=== PATIENT | male | born 1990 | race Caucasian/White ===

== ENCOUNTER 2017-11-05 14:07 | Emergency (ER) | payer OTHER, MEDICAID, SELFPAY | END 2017-11-05 15:59 | disposition home or self-care (01) | PROVIDERS: Emergency Provider Internal Medicine; Visit Provider Internal Medicine | DX: L24.5 Irritant contact dermatitis due to other chemical products (principal) | CPT/HCPCS: 99282 ==

== ENCOUNTER 2019-01-03 09:13 | Emergency (ER) | payer OTHER, MEDICAID, SELFPAY ==
[2019-01-03 09:15] VITALS: BP 132/73; PULSE 75; RESP 20; TEMP 36.8; O2SAT 98; BMI 46.8
--- NOTE | 2019-01-03 09:35 | ED.SKABFB ---
HPI - Skin/Abscess/Foreign Bdy General Chief complaint: Skin/Abscess/Foreign Body Stated complaint: Rash on both legs Time Seen by Provider: 01/03/19 09:20 Source: patient and family Mode of arrival: ambulatory Limitations: no limitations History of Present Illness HPI narrative: 28-year-old male, daily smoker with history of obesity and family history of diabetes presents with a chief complaint of bilateral lower extremity pruritic rash over the past week or so. He has tried multiple hojc-tfc-ojnnbtc medications and creams, but has not yet used any antihistamines. His symptoms have gotten no better but no worse. He denies any swelling of the tongue, lips or throat, trouble breathing or swallowing. He denies any obvious exposure to new trigger such as pets, lotions, soaps or fabric. He denies any significant history of the same. MD complaint: rash Onset (ago): day(s) Tetanus up to date: yes Location: LLE and RLE Severity: moderate Quality: pruritic Relieving factors: none Exacerbating factors: none Associated symptoms: denies other symptoms Treatments prior to arrival: OTC topical medication Related Data Home Medications Medication Instructions Recorded Confirmed aspirin 81 mg PO QDAY #0 02/18/17 calcium carbonate [Tums] 500 mg PO PRN PRN #0 02/18/17 ibuprofen 600 mg PO #0 02/18/17 Previous Rx's Medication Instructions Recorded triamcinolone acetonide 1 kevin TOPICAL BID #60 gm 11/05/17 prednisone 40 mg PO DAILY #5 tab 01/03/19 Allergies Allergy/AdvReac Type Severity Reaction Status Date / Time amoxicillin [AMOXICILLIN] Allergy Severe HIVES Unverified 10/26/17 12:56 Penicillins [PENICILLINS] Allergy Severe Unverified 10/26/17 12:56 Review of Systems Constitutional Denies chills, Denies fever(s), Denies lethargy and Denies weakness Eyes Denies change in vision, Denies eye discharge, Denies irritation and Denies loss of vision ENT Ears, Nose, Mouth, and Throat: Denies change in voice, Denies neck pain and Denies sore throat Cardiovascular Denies chest pain, Denies irregular heart rhythm, Denies lightheadedness, Denies palpitations, Denies dyspnea, Denies dyspnea on exertion and Denies orthopnea Respiratory Denies cough, Denies dyspnea, Denies dyspnea on exertion and Denies wheezing Gastrointestinal Gastrointestinal: Denies abdominal pain, Denies change in bowel habits, Denies diarrhea, Denies nausea and Denies vomiting Genitourinary Denies hematuria, Denies flank pain, Denies urinary incontinence and Denies urinary urgency Musculoskeletal Denies neck pain Integumentary/Breasts Reports pruritus, Denies erythema, Reports rash and Denies wounds Neurologic Denies confusion, Denies loss of vision and Denies weakness Psychiatric Denies anxiety, Denies confusion, Denies depression, Denies homicidal ideation and Denies suicidal ideation Endocrine Denies palpitations Hematologic/Lymphatic Denies easy bruising Allergic/Immunologic Denies wheezing [facility] Social History Smoking Status: Current every day smoker Social History Smoking Status: Current every day smoker Exam Narrative Exam Narrative: GEN: AOx3 and in mild distress EYES: Pupils are equal, round, and reactive to light and accommodation. Extraoccular muscles are intact bilaterally. There is no subconjunctival hemorrhage or exudate. ENT: No lip, tongue or throat swelling, airway patent, patient tolerating secretions. CHEST: Lungs are clear to auscultation bilaterally and free of wheezes, rales, or rhonchi. Heart rate is regular rhythm, there are no murmurs, clicks, rubs, or gallops. There is no chest wall tenderness. ABD: Abdomen is soft and nontender. There is no guarding or rebound. Bowel sounds are normal in all 4 quadrants. There is no mass or organomegaly. EXT: Full painless ROM of all extremities with no loss of sensation or strength. SKIN: Maculopapular rash in bilateral lower extremities, blanching and pruritic. Initial Vital Signs Initial Vital Signs: Vital Signs Temperature 98.2 F 01/03/19 09:15 Pulse Rate 75 01/03/19 09:15 Respiratory Rate 20 01/03/19 09:15 Blood Pressure 132/73 01/03/19 09:15 Pulse Oximetry 98 01/03/19 09:15 Course Vital Signs - 8 hr 01/03/19 09:15 Temperature 98.2 F Pulse Rate 75 Respiratory Rate 20 Blood Pressure 132/73 Pulse Oximetry 98 Discharge Plan Departure Patient Disposition: Home Clinical Impression: Allergic reaction Qualifiers: Encounter type: initial encounter Qualified Code(s): T78.40XA - Allergy, unspecified, initial encounter Interventions: ED Discharge Assessment Last Done: 01/03/19 09:56 Instructions: DI for General Allergic Reactions Activity Restrictions/Additional Instructions: *You have been diagnosed with [bilateral lower extremity allergic reaction] *What to do: *Take medications as directed: Your prescription for prednisone has been electronically transmitted to [facility] at your request. In addition please consider taking orid-ccu-biuvvht antihistamines including a nonsedating variety such as Katie or Zyrtec during the day and then Benadryl at night. Furthermore histamine type 2 blockers such as Pepcid or Zantac can also help tremendously with a redness and itching, these are also [id number]-vmcnepy *Follow up with your primary care provider in 2-3 days, call for an appointment. Let them know you were seen in the Emergency Department and that we ask that you be seen in follow up *Return to ER if you should have any new, worsening or concerning symptoms Prescriptions: New prednisone 20 mg tablet 40 mg PO DAILY Qty: 5 RF: 0 No Action aspirin 81 MG tablet,delayed release (DR/EC) 81 mg PO QDAY Qty: 0 RF: 0 calcium carbonate [Tums] 500 MG tablet,chewable 500 mg PO PRN PRNQty: 0 RF: 0 ibuprofen 600 MG tablet 600 mg PO Qty: 0 RF: 0 triamcinolone acetonide 0.1 % ointment 1 kevin Topical BID Qty: 60 RF: 0 [address]errals: [facility] [Outside]
--- NOTE | 2019-01-03 09:39 | ED_ITS ---
HPI - Skin/Abscess/Foreign Bdy General Chief complaint: Skin/Abscess/Foreign Body Stated complaint: Rash on both legs Time Seen by Provider: 01/03/19 09:20 Source: patient and family Mode of arrival: ambulatory Limitations: no limitations History of Present Illness HPI narrative: 28-year-old male, daily smoker with history of obesity and family history of diabetes presents with a chief complaint of bilateral lower extremity pruritic rash over the past week or so. He has tried multiple zhov-gap-jtchycl medications and creams, but has not yet used any antihistamines. His symptoms have gotten no better but no worse. He denies any swelling of the tongue, lips or throat, trouble breathing or swallowing. He denies any obvious exposure to new trigger such as pets, lotions, soaps or fabric. He denies any significant history of the same. MD complaint: rash Onset (ago): day(s) Tetanus up to date: yes Location: LLE and RLE Severity: moderate Quality: pruritic Relieving factors: none Exacerbating factors: none Associated symptoms: denies other symptoms Treatments prior to arrival: OTC topical medication Related Data Home Medications Medication Instructions Recorded Confirmed aspirin 81 mg PO QDAY #0 02/18/17 calcium carbonate [Tums] 500 mg PO PRN PRN #0 02/18/17 ibuprofen 600 mg PO #0 02/18/17 Previous Rx's Medication Instructions Recorded triamcinolone acetonide 1 kevin TOPICAL BID #60 gm 11/05/17 prednisone 40 mg PO DAILY #5 tab 01/03/19 Allergies Allergy/AdvReac Type Severity Reaction Status Date / Time amoxicillin [AMOXICILLIN] Allergy Severe HIVES Unverified 10/26/17 12:56 Penicillins [PENICILLINS] Allergy Severe Unverified 10/26/17 12:56 Review of Systems Constitutional Denies chills, Denies fever(s), Denies lethargy and Denies weakness Eyes Denies change in vision, Denies eye discharge, Denies irritation and Denies loss of vision ENT Ears, Nose, Mouth, and Throat: Denies change in voice, Denies neck pain and Denies sore throat Cardiovascular Denies chest pain, Denies irregular heart rhythm, Denies lightheadedness, Denies palpitations, Denies dyspnea, Denies dyspnea on exertion and Denies orthopnea Respiratory Denies cough, Denies dyspnea, Denies dyspnea on exertion and Denies wheezing Gastrointestinal Gastrointestinal: Denies abdominal pain, Denies change in bowel habits, Denies diarrhea, Denies nausea and Denies vomiting Genitourinary Denies hematuria, Denies flank pain, Denies urinary incontinence and Denies urinary urgency Musculoskeletal Denies neck pain Integumentary/Breasts Reports pruritus, Denies erythema, Reports rash and Denies wounds Neurologic Denies confusion, Denies loss of vision and Denies weakness Psychiatric Denies anxiety, Denies confusion, Denies depression, Denies homicidal ideation and Denies suicidal ideation Endocrine Denies palpitations Hematologic/Lymphatic Denies easy bruising Allergic/Immunologic Denies wheezing [facility] Social History Smoking Status: Current every day smoker Social History Smoking Status: Current every day smoker Exam Narrative Exam Narrative: GEN: AOx3 and in mild distress EYES: Pupils are equal, round, and reactive to light and accommodation. Extraoccular muscles are intact bilaterally. There is no subconjunctival hemorrhage or exudate. ENT: No lip, tongue or throat swelling, airway patent, patient tolerating secretions. CHEST: Lungs are clear to auscultation bilaterally and free of wheezes, rales, or rhonchi. Heart rate is regular rhythm, there are no murmurs, clicks, rubs, or gallops. There is no chest wall tenderness. ABD: Abdomen is soft and nontender. There is no guarding or rebound. Bowel sounds are normal in all 4 quadrants. There is no mass or organomegaly. EXT: Full painless ROM of all extremities with no loss of sensation or strength. SKIN: Maculopapular rash in bilateral lower extremities, blanching and pruritic. Initial Vital Signs Initial Vital Signs: Vital Signs Temperature 98.2 F 01/03/19 09:15 Pulse Rate 75 01/03/19 09:15 Respiratory Rate 20 01/03/19 09:15 Blood Pressure 132/73 01/03/19 09:15 Pulse Oximetry 98 01/03/19 09:15 Course Vital Signs - 8 hr 01/03/19 09:15 Temperature 98.2 F Pulse Rate 75 Respiratory Rate 20 Blood Pressure 132/73 Pulse Oximetry 98 Discharge Plan Departure Patient Disposition: Home Clinical Impression: Allergic reaction Qualifiers: Encounter type: initial encounter Qualified Code(s): T78.40XA - Allergy, unspecified, initial encounter Interventions: ED Discharge Assessment Last Done: 01/03/19 09:56 Instructions: DI for General Allergic Reactions Activity Restrictions/Additional Instructions: *You have been diagnosed with [bilateral lower extremity allergic reaction] *What to do: *Take medications as directed: Your prescription for prednisone has been electronically transmitted to [facility] at your request. In addition please consider taking wjbg-zae-ztkyjgz antihistamines including a nonsedating variety such as Katie or Zyrtec during the day and then Benadryl at night. Furthermore histamine type 2 blockers such as Pepcid or Zantac can also help tremendously with a redness and itching, these are also obzm-mmy-rweomqa *Follow up with your primary care provider in 2-3 days, call for an appointment. Let them know you were seen in the Emergency Department and that we ask that you be seen in follow up *Return to ER if you should have any new, worsening or concerning symptoms Prescriptions: New prednisone 20 mg tablet 40 mg PO DAILY Qty: 5 RF: 0 No Action aspirin 81 MG tablet,delayed release (DR/EC) 81 mg PO QDAY Qty: 0 RF: 0 calcium carbonate [Tums] 500 MG tablet,chewable 500 mg PO PRN PRNQty: 0 RF: 0 ibuprofen 600 MG tablet 600 mg PO Qty: 0 RF: 0 triamcinolone acetonide 0.1 % ointment 1 kevin Topical BID Qty: 60 RF: 0 Referrals: [facility] [Outside]
--- NOTE | 2019-01-03 09:53 | PC.NURSE ---
the uticaria is mostly all below the knees.
== END 2019-01-03 09:56 | disposition home or self-care (01) ==
PROVIDERS: Emergency Provider Emergency Medicine
DX: T78.40XA Allergy, unspecified, initial encounter (principal)
CPT/HCPCS: 99282; 99283

== ENCOUNTER 2019-07-13 09:40 | Emergency (ER) | payer SELFPAY ==
[2019-07-13 09:48] VITALS: BP 205/110; PULSE 76; RESP 20; TEMP 36.7; O2SAT 98; BMI 50.1
--- NOTE | 2019-07-13 09:53 | ED_ITS ---
HPI - Back Pain/Injury General Chief Complaint: Back Pain/Injury Stated Complaint: 'severe back pain' Time Seen by Provider: 07/13/19 09:43 Source: patient Mode of arrival: Ambulatory Limitations: no limitations History of Present Illness HPI Narrative: Patient is a 29-year-old male who presents with back pain ongoing for last week. 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 He was unable to walk length flat is the only position of comfort. He has no changes in bowel or bladder habits. He has intermittently been taking ibuprofen which has helped he took tramadol prior to arrival she says did not help MD Complaint: back pain Onset (ago): week(s) Duration: constant Related Data Home Medications Medication Instructions Recorded Confirmed aspirin 81 mg PO QDAY #0 02/18/17 calcium carbonate [Tums] 500 mg PO PRN PRN #0 02/18/17 ibuprofen 600 mg PO #0 02/18/17 Previous Rx's Medication Instructions Recorded triamcinolone acetonide 1 kevin TOPICAL BID #60 gm 11/05/17 cyclobenzaprine 5 mg PO TID PRN #10 tab 07/13/19 meloxicam [Mobic] 7.5 mg PO DAILY PRN #20 tab 07/13/19 Allergies Allergy/AdvReac Type Severity Reaction Status Date / Time amoxicillin [AMOXICILLIN] Allergy Severe HIVES Verified 07/13/19 09:56 Penicillins [PENICILLINS] Allergy Severe Rash Verified 07/13/19 09:56 Review of Systems Review of Systems Narrative: GENERAL: Denies chills,fever HEENT: Denies throat pain RESPIRATORY: Denies dyspnea, cough, wheezing CARDIOVASCULAR: Denies chest pain, palpitations GASTROINTESTINAL: Denies nausea, vomiting MUSCULOSKELETAL: See HPI SKIN: No rash, no laceration, no pruritus NEUROLOGIC: Denies weakness, dizziness, headache, numbness 8 point review of systems is negative except for those stated above and HPI Patient History Medical History Patient denies significant medical history (Acute) Social History (Reviewed 12/27/19 @ 10:08 by NICHOL Malik Smoking Status: Current every day smoker Smoking Status: Current every day smoker alcohol intake frequency: a few times a month Substance Use Type: marijuana Exam Initial Vital Signs Initial Vital Signs: Vital Signs Temperature 98.1 F 07/13/19 09:48 Pulse Rate 76 07/13/19 09:48 Respiratory Rate 20 07/13/19 09:48 Blood Pressure 205/110 H 07/13/19 09:48 Pulse Oximetry 98 07/13/19 09:48 GENERAL: Overweight male appears in pain lying flat HEENT: Head atraumatic,EOMI, pupils reactive CARDIOVASCULAR: Regular rate and rhythm without murmurs, rubs or gallops. RESPIRATORY: Breath sounds equal bilaterally, no wheezes rales or rhonchi. BACK: Pain is reproduced when he tries to lift his left leg able to lift left leg 20-30 degrees. Right leg able to lift more than 60? EXTREMITIES: Normal range of motion, no clubbing or edema. Neurovascularly intact NEUROLOGICAL: Alert and oriented x4 SKIN: Warm, dry, no laceration, no petechiae, no rashes or lesions. Course Orders Ordered: Discontinued Medications Cyclobenzaprine HCl (Flexeril) 10 mg PO NOW ONE Stop: 07/13/19 10:00 Last Admin: 07/13/19 10:07 Dose: 10 mg Documented by: ROXANNE Ketorolac Tromethamine (Toradol) 30 mg IM NOW ONE Stop: 07/13/19 10:00 Last Admin: 07/13/19 10:07 Dose: 30 mg Documented by: ROXANNE Vital Signs Vital signs: Vital Signs - 8 hr 07/13/19 09:48 07/13/19 10:32 Temperature 98.1 F Pulse Rate 76 74 Respiratory Rate 20 18 Blood Pressure 205/110 H Blood Pressure [Left Arm] 167/88 H Pulse Oximetry 98 96 MDM - Back Pain/Injury MDM Narrative Medical decision making narrative: The patient is feeling a little bit better but still having significant pain. He is prescribed meloxicam and Flexeril recommended hot shower heating pad stretching and massage. Discharge Plan Departure Patient Disposition: Home Clinical Impression: Back pain Qualifiers: Back pain location: low back pain Chronicity: acute Back pain laterality: left Sciatica presence: with sciatica Sciatica laterality: sciatica of left side Qualified Code(s): M54.42 - Lumbago with sciatica, left side Discharge Date/Time: 07/13/19 11:01 Instructions: DI for Back Pain With Sciatica Activity Restrictions/Additional Instructions: *You have been diagnosed with back pain with sciatica *What to do: Recommend heat and stretching, light activity such as walking however heavy lifting more than 10-15 lb is not recommended in till your back is completely resolved *Continue to take medications as directed--> SENT TO [facility] [place] Meloxicam 7.5 mg once a day do not combine with any other NSAIDs such as ibuprofen, Aleve, Advil, naproxen etc Flexeril 1 to 2 tablets every 8 hours if needed for muscle spasm this can cause drowsiness do not drive or operate heavy machinery *Follow up with your primary care provider in 2-3 days *Return to ER if you should have increasing leg weakness, loss of urine or stool increasing pain or any new, worsening or concerning symptoms Prescriptions: New meloxicam [Mobic] 7.5 mg tablet 7.5 mg PO DAILY PRN (Reason: pain (scale score 4-6)) Qty: 20 RF: 0 cyclobenzaprine 5 mg tablet 5 mg PO TID PRN (Reason: muscle spasm) Qty: 10 RF: 0 No Action aspirin 81 MG tablet,delayed release (DR/EC) 81 mg PO QDAY Qty: 0 RF: 0 calcium carbonate [Tums] 500 MG tablet,chewable 500 mg PO PRN PRNQty: 0 RF: 0 ibuprofen 600 MG tablet 600 mg PO Qty: 0 RF: 0 triamcinolone acetonide 0.1 % ointment 1 kevin Topical BID Qty: 60 RF: 0 Referrals: [facility] [Outside]
[2019-07-13] MEDS: KETOROLAC 60 MG/2 ML VIAL 30 MG IM (10:07)
[2019-07-13] MEDS: CYCLOBENZAPRINE 10 MG TABLET PO (10:07)
[2019-07-13 10:32] VITALS: BP 167/88; PULSE 74; RESP 18; O2SAT 96
== END 2019-07-13 11:01 | disposition home or self-care (01) ==
PROVIDERS: Emergency Provider Emergency Medicine
DX: M54.42 Lumbago with sciatica, left side (principal)
CPT/HCPCS: 96372; 99281; 99283; J1885

== ENCOUNTER 2019-09-06 12:25 | Emergency (ER) | payer OTHER, MEDICAID, SELFPAY ==
[2019-09-06 12:27] VITALS: BP 172/116; PULSE 99; TEMP 36.5; O2SAT 99; BMI 50.0
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
[2019-09-06 13:00] VITALS: BP 139/101; PULSE 93; RESP 16; O2SAT 99
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
[2019-09-06 13:11] VITALS: BP 139/101; PULSE 93; RESP 20; O2SAT 99
[2019-09-06] MEDS: HYDROCODONE/ACET 5/325 TABLET 2 TAB PO (15:07)
[2019-09-06 15:14] VITALS: BP 175/103; PULSE 82; RESP 19; O2SAT 98
[2019-09-06 15:17] VITALS: BP 170/93; PULSE 80; RESP 20; O2SAT 98
== END 2019-09-06 15:41 | disposition home or self-care (01) ==
PROVIDERS: Emergency Provider Emergency Medicine
DX: M23.92 Unspecified internal derangement of left knee (principal); S69.91XA Unspecified injury of right wrist, hand and finger(s), initial encounter; V89.2XXA Person injured in unspecified motor-vehicle accident, traffic, initial encounter
CPT/HCPCS: 73110; 73562; 99283; 99284

== ENCOUNTER 2021-04-07 16:41 | Emergency (ER) | payer OTHER, MEDICAID, SELFPAY ==
[2021-04-07] VITALS (12 sets, daily range): BP systolic 135–162; BP diastolic 73–96; PULSE 80–95; RESP 10–25; TEMP 36.6; O2SAT 96–98; BMI 48.7
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
--- NOTE | 2021-04-07 17:28 | PC.NURSE ---
Pt reports 3 episodes of shearing chest pain in last month, most recent last night. Currently chest feels funny like I ran around a lot. C/o nausea and dizziness during an episode.
[2021-04-07 17:34] LABS: Add Manual Diff / Slide Review NO; Basophils Absolute Auto 100 /uL (0-100); Basophils Percent Auto 1.4 % (0-2); Eosinophils Absolute Auto 100 /uL (0-450); Hematocrit 44.1 % (41-53); Hemoglobin 15.1 g/dL (13.5-17.5); Lymphocytes Absolute Auto 2500 /uL (1100-4500); Lymphocytes Percent Auto 24.4 % (25-40); Mean Corpuscular HGB Conc 34.2 % (30-36); Mean Corpuscular Hemoglobin 29.2 PG (26-34); Mean Corpuscular Volume 85.4 fL (80-100); Monocytes Absolute Auto 600 /uL (0-900); Monocytes Percent Auto 5.4 % (3-14); Neutrophils Absolute Auto 6900 /uL (1500-7000); Neutrophils Percent Auto 67.8 % (50-75); Platelet Count 243 X10^3/uL (150-400); Red Blood Cell Count 5.16 X10^6/uL (4.5-5.9); Red Cell Distribution Width 14.2 % (11.6-14.8); White Blood Cell Count 10.2 X10^3/uL (4.5-11.0)
[2021-04-07 17:41] LABS: Alanine Aminotransferase 108 IU/L (<50); Albumin 4.4 g/dL (3.5-5.0); Albumin Globulin Ratio 1.5 (1.0-2.8); Alkaline Phosphatase 77 U/L (38-126); Aspartate Aminotransferase 60 IU/L (17-59); BUN Creatinine Ratio 17.4 (6-22); Bilirubin Total 0.5 mg/dL (0.2-1.3); Blood Urea Nitrogen 12 mg/dL (9-20); Calcium 9.2 mg/dL (8.4-10.2); Carbon Dioxide 32 mmol/L (22-32); Chloride 102 mmol/L (98-107); Creatine Kinase 136 U/L (55-170); Estimated Glomerular Filt Rate > 60.0 mL/min (>60); Glucose 154 mg/dL (70-100); HEMOLYSIS < 15 (0-50); Lipase 54 U/L (23-300); Potassium 4.1 mmol/L (3.4-5.1); Sodium 141 mmol/L (137-145); Total Protein 7.4 g/dL (6.3-8.2)
[2021-04-07 17:56] LABS: CKMB % Relative Index 1.9 % (1.5-5.0); Creatine Kinase MB 2.62 ng/mL (<2.37)
--- NOTE | 2021-04-07 18:32 | DI.RAD.S_ITS ---
PROCEDURE: XR CHEST 1V INDICATIONS: Chest pain, fatigue TECHNIQUE: One view of the [facility] was acquired. [facility] 04/07/[facility], 17:40. FINDINGS: Surgical changes and devices: None. Lungs and pleura: Lungs are clear. No pleural effusions or pneumothorax. Mediastinum: Mediastinal contours appear normal. Heart size is normal. Bones and chest wall: No suspicious bony lesions. Overlying soft tissues appear unremarkable. IMPRESSION: No infiltrate. Dictated by: Kasi Blanc M.D. on 04/07/2021 at 18:44 Approved by: Kasi Blanc M.D. on 04/07/2021 at 18:45
--- NOTE | 2021-04-07 19:26 | ED.CHESTPAIN ---
HPI - Chest Pain <Rivka Torres PA-C - Last Filed: 04/07/21 20:30> General Chief Complaint: Chest Pain Stated Complaint: CHEST PAIN Time Seen by Provider: 04/07/21 17:29 Source: patient Mode of arrival: Ambulatory Limitations: no limitations History of Present Illness HPI narrative: 31-year-old male with past medical history presents to the ED with 2 days of chest pain. Patient endorses onset of symptoms yesterday, which he describes as palpitations and chest pain accompanied by diaphoresis, fatigue, lightheadedness, anxiety. Patient called EMS, and in the meanwhile attempted a Valsalva maneuver by bearing down, which broke his palpitations. Patient endorses a history of such palpitations for several years, for which she has not sought medical help. EMS did an EKG with no acute findings, so patient did not come to the ED yesterday. Patient experienced similar palpitations along with chest pain earlier today, which prompted him to come into the ED. patient denies fever, chills, shortness of breath, cough, nausea, vomiting, abdominal pain, syncope. Patient endorses a family history of cardiac problems, but no early cardiac deaths. Related Data Home Medications Medication Instructions Recorded Confirmed aspirin 81 mg tablet,delayed 81 mg PO QDAY #0 02/18/17 release calcium carbonate 200 mg calcium 500 mg PO PRN PRN #0 02/18/17 (500 mg) chewable tablet (Tums) ibuprofen 600 mg tablet 600 mg PO #0 02/18/17 Previous Rx's Medication Instructions Recorded triamcinolone acetonide 0.1 % 1 kevin TOPICAL BID #60 gm 11/05/17 topical ointment cyclobenzaprine 5 mg tablet 5 mg PO TID PRN #10 tab 07/13/19 meloxicam 7.5 mg tablet (Mobic) 7.5 mg PO DAILY PRN #20 tab 07/13/19 Allergies Allergy/AdvReac Type Severity Reaction Status Date / Time amoxicillin [AMOXICILLIN] Allergy Severe HIVES Verified 09/06/19 12:27 Penicillins [PENICILLINS] Allergy Severe Rash Verified 09/06/19 12:27 Review of Systems <Rivka Torres PA-C - Last Filed: 04/07/21 20:30> Constitutional Constitutional: Denies chills, Reports fatigue, Denies fever(s), Denies frequent falls, Denies lethargy and Denies weakness Eyes Eyes: Denies change in vision, Denies eye discharge, Denies irritation and Denies loss of vision ENT Ears, Nose, Mouth, and Throat: Denies change in voice, Denies dizziness, Denies neck pain, Denies sore throat and Denies throat swelling Cardiovascular Cardiovascular: Reports chest pain, Denies irregular heart rhythm, Reports lightheadedness, Reports palpitations, Denies dyspnea, Denies dyspnea on exertion and Denies orthopnea Respiratory Respiratory: Denies cough, Denies dyspnea, Denies dyspnea on exertion and Denies wheezing Gastrointestinal Gastrointestinal: Denies abdominal pain, Denies change in bowel habits, Denies diarrhea, Denies nausea and Denies vomiting Musculoskeletal Musculoskeletal: Denies neck pain and Denies numbness Integumentary/Breasts Skin/Breast: Denies pruritus, Denies erythema, Denies rash and Denies wounds Neurologic Neurologic: Denies behavioral changes, Denies confusion, Denies dizziness, Denies frequent falls, Denies loss of vision, Denies numbness and Denies weakness Psychiatric Psychiatric: Denies anxiety, Denies behavioral changes, Denies confusion, Denies depression, Denies homicidal ideation and Denies suicidal ideation Endocrine Endocrine: Reports fatigue, Denies flushing and Reports palpitations Hematologic/Lymphatic Hematologic/Lymphatic: Denies easy bruising Allergic/Immunologic Allergic/Immunologic: Denies urticaria, Denies throat swelling and Denies wheezing Patient History <Rivka Torres PA-C - Last Filed: 04/07/21 20:30> Medical History (Updated 04/07/21 @ 20:06 by Rivka Torres PA-C) Patient denies significant medical history Social History Smoking Status: Former smoker Smoking Status: Former smoker alcohol intake frequency: holidays/special occasions only Substance Use Type: does not use Exam <Rivka Torres PA-C - Last Filed: 04/07/21 20:30> Initial Vital Signs Initial Vital Signs: Vital Signs Temperature 97.8 F 04/07/21 16:50 Pulse Rate 94 H 04/07/21 16:50 Respiratory Rate 16 04/07/21 16:50 Blood Pressure 162/87 H 04/07/21 16:50 Pulse Oximetry 98 04/07/21 16:50 Const General: cooperative HENMT Head: normocephalic and atraumatic Ears: external ears normal and TM's normal bilaterally Nose: external nose normal and No nasal discharge Face and sinus: sinuses nontender, face symmetric, no sinus tenderness and No dry mucous membranes Mouth: oral mucosae normal and moist mucous membranes Teeth and gingiva: dentition normal Throat: tonsils normal and uvula midline Eyes General: appearance normal, both eyes and all related structures Eyelids: eyelids normal Conjunctivae: conjunctivae normal Sclera: sclerae normal Pupils: PERRL EOM: EOM intact bilaterally Neck Neck: normal visual inspection, trachea midline, No lymphadenopathy, No midline deformity and No JVD Lymphatic: No lymphedema Chest Chest: normal inspection of the chest Resp Effort & Inspection: normal respiratory effort, able to speak in complete sentences, no respiratory distress and no use of accessory muscles Auscultation: clear to auscultation bilaterally, no rales, no rhonchi and no wheezes Cardio Rate: regular rate Rhythm: regular rhythm Heart Sounds: no click, no gallops, no murmurs and no rubs Pulses: normal peripheral pulses GI Inspection: non-distended Palpation: soft, no hepatosplenomegaly, No guarding, No pulsatile mass and No tender Auscultation: normal bowel sounds Back/Spine/Pelvis Back: No CVA tenderness Cervical Spine: cervical ROM normal and No pain with cervical ROM Thoracic/Lumbar Spine: thoracic and lumbar spine normal to inspection Skin General: no rashes or lesions noted, No jaundice and No petechiae Neuro General: patient alert, patient oriented x3, gait normal and no focal motor deficits Speech: speech normal Extrem General: full ROM, no clubbing, cyanosis or edema, no pedal edema and no calf tenderness Psych Appearance: well kempt Mental Status: mental status grossly normal Attitude: cooperative Thought Content: normal and suicidality Judgment: judgment good <Neno Martinez DO - Last Filed: 04/08/21 07:13> Initial Vital Signs Initial Vital Signs: Vital Signs Temperature 97.8 F 04/07/21 16:50 Pulse Rate 94 H 04/07/21 16:50 Respiratory Rate 16 04/07/21 16:50 Blood Pressure 162/87 H 04/07/21 16:50 Pulse Oximetry 98 04/07/21 16:50 Scores <Rivka Torres PA-C - Last Filed: 04/07/21 20:30> HEART Score Heart Score history: Moderately Suspicious Heart Score EKG: Normal Heart Score Age: < 45 years old Heart Score risk factors: 1-2 risk factors Heart Score troponin: < or = to normal limit Heart Score Total: 2 <Neno Martinez DO - Last Filed: 04/08/21 07:13> HEART Score Heart Score Total: 2 Course <Rivka Torres PA-C - Last Filed: 04/07/21 20:30> Course Course Narrative: Trop 0.030. Will recheck trop, EKG. Repeat trop was dwntrending to 0.020. Repeat EKG without changes. Will discharge home with strict ED return precautions, close follow-up with Cardiology and PCP. Orders Ordered: ED Orders 04/07/21 16:50 Complete Blood Count AUTO DIFF Stat Comprehensive Metabolic Panel Stat Lipase Stat Troponin & CK Cardiac Panel Stat 04/07/21 17:09 XR chest 1V Stat 04/07/21 18:32 XR chest 1V Stat 04/07/21 19:12 Troponin I Stat Vital Signs Vital signs: Vital Signs - 8 hr 04/07/21 16:50 04/07/21 17:20 04/07/21 17:21 Temperature 97.8 F Pulse Rate 94 H 95 H 89 Respiratory Rate 16 11 L 10 L Blood Pressure 162/87 H 162/96 H Pulse Oximetry 98 98 98 04/07/21 17:30 04/07/21 18:00 04/07/21 18:30 Temperature Pulse Rate 91 H 90 89 Respiratory Rate 22 19 25 H Blood Pressure 153/90 H 139/74 135/88 Pulse Oximetry 97 98 97 04/07/21 19:00 04/07/21 19:30 04/07/21 20:00 Temperature Pulse Rate 91 H 93 H 82 Respiratory Rate 21 18 22 Blood Pressure Pulse Oximetry 98 98 98 04/07/21 20:20 Temperature Pulse Rate 86 Respiratory Rate 21 Blood Pressure 154/80 H Pulse Oximetry 97 <Neno Martinez DO - Last Filed: 04/08/21 07:13> Orders Ordered: ED Orders 04/07/21 16:50 Complete Blood Count AUTO DIFF Stat Comprehensive Metabolic Panel Stat Lipase Stat Troponin & CK Cardiac Panel Stat 04/07/21 17:09 XR chest 1V Stat 04/07/21 18:32 XR chest 1V Stat 04/07/21 19:12 Troponin I Stat Vital Signs Vital signs: Vital Signs - 8 hr 04/07/21 16:50 04/07/21 17:20 04/07/21 17:21 Temperature 97.8 F Pulse Rate 94 H 95 H 89 Respiratory Rate 16 11 L 10 L Blood Pressure 162/87 H 162/96 H Pulse Oximetry 98 98 98 04/07/21 17:30 04/07/21 18:00 04/07/21 18:30 Temperature Pulse Rate 91 H 90 89 Respiratory Rate 22 19 25 H Blood Pressure 153/90 H 139/74 135/88 Pulse Oximetry 97 98 97 04/07/21 19:00 04/07/21 19:30 04/07/21 20:00 Temperature Pulse Rate 91 H 93 H 82 Respiratory Rate 21 18 22 Blood Pressure Pulse Oximetry 98 98 98 04/07/21 20:20 Temperature Pulse Rate 86 Respiratory Rate 21 Blood Pressure 154/80 H Pulse Oximetry 97 MDM - Chest Pain <Rivka Torres PA-C - Last Filed: 04/07/21 20:30> Lab Data Lab results narrative: Trop 0.030 -> 0.020. Result diagrams: 04/07/21 16:50 04/07/21 16:50 Labs: Lab Results 04/07/21 04/07/21 04/07/21 Range/Units 16:50 16:50 19:30 WBC 10.2 (4.5-11.0) X10^3/uL RBC 5.16 (4.5-5.9) X10^6/uL Hgb 15.1 (13.5-17.5) g/dL Hct 44.1 (41-53) % MCV 85.4 (80-100) fL MCH 29.2 (26-34) PG MCHC 34.2 (30-36) % RDW 14.2 (11.6-14.8) % Plt Count 243 (150-400) X10^3/uL Neut % (Auto) 67.8 (50-75) % Lymph % (Auto) 24.4 L (25-40) % Williams % (Auto) 5.4 (3-14) % Eos % (Auto) 1.0 L (2-4) % Baso % (Auto) 1.4 (0-2) % Neut # (Auto) 6900 (2756-7362) /uL Lymph # (Auto) 2500 (3336-2726) /uL Williams # (Auto) 600 (0-900) /uL Eos # (Auto) 100 (0-450) /uL Baso # (Auto) 100 (0-100) /uL Sodium 141 (137-145) mmol/L Potassium 4.1 (3.4-5.1) mmol/L Chloride 102 (98-107) mmol/L Carbon Dioxide 32 (22-32) mmol/L BUN 12 (9-20) mg/dL Creatinine 0.69 (0.66-1.25) mg/dL Estimated GFR > 60.0 (>60) mL/min BUN/Creatinine Ratio 17.4 (6-22) Glucose 154 H (70-100) mg/dL Calcium 9.2 (8.4-10.2) mg/dL Total Bilirubin 0.5 (0.2-1.3) mg/dL AST 60 H (17-59) IU/L ALT 108 H (<50) IU/L Alkaline Phosphatase 77 (38-126) U/L Total Creatine Kinase 136 (55-170) U/L CK-MB (CK-2) 2.62 H (<2.37) ng/mL CK-MB (CK-2) Rel Index 1.9 (1.5-5.0) % Troponin I 0.030 0.020 (0.01-0.034) ng/mL Total Protein 7.4 (6.3-8.2) g/dL Albumin 4.4 (3.5-5.0) g/dL Globulin 3.0 (1.7-4.1) g/dL Albumin/Globulin Ratio 1.5 (1.0-2.8) Lipase 54 (23-300) U/L Imaging Data Chest x-ray: Radiologist's Impression: PROCEDURE:? XR CHEST 1V ? INDICATIONS:? Chest pain, fatigue ? TECHNIQUE:? One view of the chest was acquired.? ? COMPARISON:? [facility], CHEST 2 VIEW, 02/18/2017, 18:03.? [facility], , XR CHEST 1V, 04/07/2021, 17:40. ? FINDINGS:? ? Surgical changes and devices:? None.? ? Lungs and pleura:? Lungs are clear.? No pleural effusions or pneumothorax.? ? Mediastinum:? Mediastinal contours appear normal.? Heart size is normal.? ? Bones and chest wall:? No suspicious bony lesions.? Overlying soft tissues appear unremarkable.? ? IMPRESSION:? No infiltrate. ? ? Dictated by: Kasi Blanc M.D. on 04/07/2021 at 18:44 ? ? Approved by: Kasi Blanc M.D. on 04/07/2021 at 18:45 ? chest x-ray 2v: Radiologist's Impression: PROCEDURE:? XR CHEST 1V ? INDICATIONS:? Chest pain, fatigue ? TECHNIQUE:? One view of the chest was acquired.? ? COMPARISON:? [facility], [place], CHEST 2 VIEW, 02/18/2017, 18:03.? [facility], [place], XR CHEST 1V, 04/07/2021, 17:40. ? FINDINGS:? ? Surgical changes and devices:? None.? ? Lungs and pleura:? Lungs are clear.? No pleural effusions or pneumothorax.? ? Mediastinum:? Mediastinal contours appear normal.? Heart size is normal.? ? Bones and chest wall:? No suspicious bony lesions.? Overlying soft tissues appear unremarkable.? ? IMPRESSION:? No infiltrate. ? ? Dictated by: Kasi Blanc M.D. on 04/07/2021 at 18:44 ? ? Approved by: Kasi Blanc M.D. on 04/07/2021 at 18:45 ? ECG Data Interpretation: NSR, No ST-T changes, no axis deviation MDM Narrative Medical decision making narrative: 31-year-old male with past medical history presents to the ED with 2 days of chest pain. Patient endorses onset of symptoms yesterday, which he describes as palpitations and chest pain accompanied by diaphoresis, fatigue, lightheadedness, anxiety. Concern for ACS versus SVT versus other arrhythmia versus pneumonia. Will order EKG, chest x-ray, labs, troponin. Will reassess. <Neno Martinez, - Last Filed: 04/08/21 07:13> Lab Data Labs: Lab Results 04/07/21 04/07/21 04/07/21 Range/Units 16:50 16:50 19:30 WBC 10.2 (4.5-11.0) X10^3/uL RBC 5.16 (4.5-5.9) X10^6/uL Hgb 15.1 (13.5-17.5) g/dL Hct 44.1 (41-53) % MCV 85.4 (80-100) fL MCH 29.2 (26-34) PG MCHC 34.2 (30-36) % RDW 14.2 (11.6-14.8) % Plt Count 243 (150-400) X10^3/uL Neut % (Auto) 67.8 (50-75) % Lymph % (Auto) 24.4 L (25-40) % Williams % (Auto) 5.4 (3-14) % Eos % (Auto) 1.0 L (2-4) % Baso % (Auto) 1.4 (0-2) % Neut # (Auto) 6900 (8957-5227) /uL Lymph # (Auto) 2500 (7680-8306) /uL Williams # (Auto) 600 (0-900) /uL Eos # (Auto) 100 (0-450) /uL Baso # (Auto) 100 (0-100) /uL Sodium 141 (137-145) mmol/L Potassium 4.1 (3.4-5.1) mmol/L Chloride 102 (98-107) mmol/L Carbon Dioxide 32 (22-32) mmol/L BUN 12 (9-20) mg/dL Creatinine 0.69 (0.66-1.25) mg/dL Estimated GFR > 60.0 (>60) mL/min BUN/Creatinine Ratio 17.4 (6-22) Glucose 154 H (70-100) mg/dL Calcium 9.2 (8.4-10.2) mg/dL Total Bilirubin 0.5 (0.2-1.3) mg/dL AST 60 H (17-59) IU/L ALT 108 H (<50) IU/L Alkaline Phosphatase 77 (38-126) U/L Total Creatine Kinase 136 (55-170) U/L CK-MB (CK-2) 2.62 H (<2.37) ng/mL CK-MB (CK-2) Rel Index 1.9 (1.5-5.0) % Troponin I 0.030 0.020 (0.01-0.034) ng/mL Total Protein 7.4 (6.3-8.2) g/dL Albumin 4.4 (3.5-5.0) g/dL Globulin 3.0 (1.7-4.1) g/dL Albumin/Globulin Ratio 1.5 (1.0-2.8) Lipase 54 (23-300) U/L Discharge Plan Departure Patient Disposition: Home Clinical Impression: Chest pain Qualifiers: Chest pain type: unspecified Qualified Code(s): R07.9 - Chest pain, unspecified Instructions: DI for Chest Pain Activity Restrictions/Additional Instructions: You were evaluated in the ED for chest pain today. Your EKG, chest x-ray, labs were normal. Please follow-up with a manufacturing millwright as soon as possible to be further evaluated for your frequent palpitations and chest pain. Follow-up with your PCP for a physical exam. Return to the ED if you symptoms worsen, worsening chest pain, shortness of breath. Prescriptions: No Action aspirin 81 MG tablet,delayed release (DR/EC) 81 mg PO QDAY Qty: 0 RF: 0 calcium carbonate [Tums] 500 MG tablet,chewable 500 mg PO PRN PRNQty: 0 RF: 0 ibuprofen 600 MG tablet 600 mg PO Qty: 0 RF: 0 triamcinolone acetonide 0.1 % ointment 1 kevin Topical BID Qty: 60 RF: 0 meloxicam [Mobic] 7.5 mg tablet 7.5 mg PO DAILY PRN (Reason: pain (scale score 4-6)) Qty: 20 RF: 0 cyclobenzaprine 5 mg tablet 5 mg PO TID PRN (Reason: muscle spasm) Qty: 10 RF: 0 <Neno Martinez, DO - Last Filed: 04/08/21 07:13> [facility] Dr Martinez Co-Sign Statement: I was available for consultation during this patient's emergency department visit. This chart is signed by myself for administrative purposes only. I did not have direct contact with this patient during this visit. They were seen independently by the APC.
== END 2021-04-07 20:52 | disposition home or self-care (01) ==
PROVIDERS: Emergency Medicine; Emergency Provider Student in an Organized Health Care Education/Training Program
DX: R07.9 Chest pain, unspecified (principal); R00.2 Palpitations; R53.83 Other fatigue
CPT/HCPCS: 36415; 71045; 80053; 82550; 82553; 83690; 84484; 85025; 93005; 93010; 99284

== ENCOUNTER → 2021-04-16 10:07 | Outpatient (CLI) | payer OTHER, MEDICAID, SELFPAY ==
--- NOTE | 2021-04-16 10:08 | DI.ECHO.S_ITS ---
[facility] +---------+ : : [id number] : [place] : : : : [id number] : : : : Phone: [phone] Echocardiogram Report + + :Name: CHAPO ABDALLA Study Date: 04/16/2021 Height: 75 in : :[facility] ReadingLocation: Weight: 390 lb : : Gender: Male BSA: 2.9 m2 : :: 1990 Age: 31 yrs BP: 186/109 mmHg: :Reason For Study: Chest pain : :Ordering Physician: VARINDER, : :TEJA Performed By: Antony Dumont : :Referring: TEJA REEDER : + + Interpretation Summary The left ventricle is normal in size. There is mild concentric left ventricular hypertrophy. Left ventricular systolic function is normal. The ejection fraction is estimated to be 60-65%. There are no focal wall motion abnormalities. Diastolic parameters suggest probable normal left ventricular diastolic function and normal filling pressures. The right ventricle is normal in size and function. The right ventricular systolic pressure is estimated to be at least 27 mmHg based on an estimated right atrial pressure of 3 mm Hg. Both atria are normal in size. There is mild mitral regurgitation. There is no other significant valvular heart disease. The aortic root is not well visualized. Procedure: A two-dimensional transthoracic echocardiogram with color flow and Doppler was performed. The study quality was technically difficult. There is no prior echocardiogram noted for this patient. A contrast injection of Definity was performed to improve assessment of LV function. Left Ventricle: The left ventricle is normal in size. There is mild concentric left ventricular hypertrophy. Left ventricular systolic function is normal. The ejection fraction is estimated to be 60-65%. There are no focal wall motion abnormalities. Diastolic parameters suggest probable normal left ventricular diastolic function and normal filling pressures. Right Ventricle: The right ventricle is normal in size and function. Atria: Both atria are normal in size. There is no Doppler evidence for an interatrial shunt. Mitral Valve: The mitral valve is normal in structure and function. There is mild mitral regurgitation. Aortic Valve: The aortic valve is grossly normal. There is no aortic valve stenosis. No aortic regurgitation is present. Tricuspid Valve: The tricuspid valve is normal in structure and function. There is mild tricuspid regurgitation. The right ventricular systolic pressure is estimated to be at least 27 mmHg based on an estimated right atrial pressure of 3 mm Hg. Pulmonic Valve: The pulmonic valve is not well visualized. There is no pulmonic valvular regurgitation. There is no other significant valvular heart disease. Great Vessels: The aortic root is not well visualized. The dimensions of the ascending aorta are normal. The IVC is of normal diameter and collapses greater than 50% with a sniff. This suggests a low right atrial pressure of 3 mm Hg. Pericardium/ Pleura There is no pericardial effusion. There is no pleural effusion. MMode/2D Measurements & Calculations LVIDd: 6.0 cm LVOT diam: 2.3 cm LVIDs: 3.8 cm asc Aorta Diam: 3.2 cm FS: 36.7 % IVSd: 1.4 cm LVPWd: 1.2 cm LV becerra. diameter/BSA (cm/m^2): 2.1 LV sys. diameter/BSA (cm/m^2): 1.3 LA dimension: 4.2 cm RA long axis: 4.7 cm LA A2 area: 24.6 cm2 IVC diam: 2.0 cm LA A4 area: 27.9 cm2 LA length (vol): 6.4 cm LA vol: 91.5 ml LA vol index: 31.4 ml/m2 TAPSE_phl: 2.8 cm Doppler Measurements & Calculations Ao V2 max: 172.0 cm/sec LVOT Max Kashif: 146.0 cm/sec Ao V2 mean: 119.0 cm/sec LV V1 max P.5 mmHg Ao max P.0 mmHg LV V1 VTI: 29.3 cm Ao mean P.0 mmHg ARMANDO(I,D): 4.0 cm2 Ao V2 VTI: 30.1 cm ARMANDO(V,D): 3.5 cm2 sev ratio: 0.97 ARMANDO indexed to BSA (cm^2/m^2): 1.4 MV E max kashif: 92.2 cm/sec TR max kashif: 244.0 cm/sec MV A max kashif: 80.5 cm/sec TR max P.8 mmHg MV E/A: 1.1 PA V2 max: 94.7 cm/sec Med Peak E' Kashif: 7.8 cm/sec PA V2 mean: 67.2 cm/sec E/E' med: 11.8 PA mean P.0 mmHg Lat Peak E' Kashif: 10.7 cm/sec PA pr(Accel): 52.9 mmHg E/E' lat: 8.6 E/e' average: 10.2 MV dec time: 0.22 sec SV(LVOT): 121.7 ml AV VR_phl: 0.85 ARMANDO(VTI)/BSA_phl: 1.4 MV P1/2t-pr_phl: 63.0 msec Reading Physician:02:50 PM
== END ==
PROVIDERS: PCP Student in an Organized Health Care Education/Training Program; Referring Provider Student in an Organized Health Care Education/Training Program; Visit Provider Student in an Organized Health Care Education/Training Program
DX: I08.1 Rheumatic disorders of both mitral and tricuspid valves (principal); R07.9 Chest pain, unspecified; R00.2 Palpitations
CPT/HCPCS: C8929; Q9957

== ENCOUNTER 2021-05-12 12:19 | Emergency (ER) | payer OTHER, MEDICAID, SELFPAY ==
[2021-05-12 12:25] VITALS: PULSE 243; RESP 26; TEMP 36.6; O2SAT 99; BMI 48.7
--- NOTE | 2021-05-12 12:28 | DI.RAD.S_ITS ---
PROCEDURE: XR CHEST 1V INDICATIONS: HIGH HEARTRATE AND CHEST PAIN TECHNIQUE: One view of the chest was acquired. COMPARISON: [facility], , XR CHEST 1V, 04/07/2021, 18:28. FINDINGS: Surgical changes and devices: None. Lungs and pleura: Lungs are clear. No pleural effusions or pneumothorax. Mediastinum: Mediastinal contours appear normal. Heart size is normal. Bones and chest wall: No suspicious bony lesions. Overlying soft tissues appear unremarkable. IMPRESSION: No acute cardiopulmonary process demonstrated radiographically. Dictated by: Venkat Chua M.D. on 05/12/2021 at 13:40 Approved by: Venkat Chua M.D. on 05/12/2021 at 13:42
[2021-05-12] MEDS: ADENOSINE 6 MG/2 ML VIAL 12 MG IV (12:40)
--- NOTE | 2021-05-12 12:42 | ED_ITS ---
HPI - Chest Pain General Chief Complaint: Chest Pain Stated Complaint: something is going on with heart Time Seen by Provider: 05/12/21 12:42 History of Present Illness HPI narrative: Patient is a 31-year-old male who presents with chest palpitations heart rate of 220 in SVT. He states that this has happened to him 4 times in the past however he quickly goes out of it. In fact he has an appointment with a atm mechanic who is postop put a Zio patch on him. He is sweaty diaphoretic feels like his heart is pounding out of his chest. He says this started after he quit smoking pot, 65 days ago. Related Data Home Medications Medication Instructions Recorded Confirmed aspirin 81 mg tablet,delayed 81 mg PO QDAY #0 02/18/17 release Allergies Allergy/AdvReac Type Severity Reaction Status Date / Time amoxicillin [AMOXICILLIN] Allergy Severe HIVES Verified 04/15/21 09:28 Penicillins [PENICILLINS] Allergy Severe Rash Verified 04/15/21 09:28 Review of Systems Review of Systems Narrative: GENERAL: Denies chills, fatigue, malaise, fever, sweats, travel HEENT: Denies sinus pain, ear pain, sore throat, difficulty swallowing, neck pain RESPIRATORY: Denies dyspnea, cough, wheezing, hemoptysis, sputum. CARDIOVASCULAR: See HPI GASTROINTESTINAL: Denies nausea, vomiting, abdominal pain, diarrhea, constipation, melena. : Denies dysuria, frequency, incontinence, hematuria, urinary retention, flank pain. MUSCULOSKELETAL: Denies weakness, joint pain, or bony pain SKIN: No rash, no erythema, no pruritus NEUROLOGIC: Denies weakness, dizziness, headache, numbness, change in speech, confusion PSYCHIATRIC: No concerning psychosocial issues. 12 point review of systems is negative except for those stated above and HPI Patient History Medical History (Updated 05/12/21 @ 13:35 by Lindsay Lozoya DO) Colitis Laceration of left index finger Puncture wound Splenic infarct Social History Smoking Status: Former smoker (started 01/2003 stopped 07/2017 1pk a day) Smoking Status: Former smoker (started 01/2003 stopped 07/2017 1pk a day) alcohol intake frequency: holidays/special occasions only Substance Use Type: does not use Exam Initial Vital Signs Initial Vital Signs: Vital Signs Temperature 98 F 05/12/21 12:25 Pulse Rate 243 H 05/12/21 12:25 Respiratory Rate 26 H 05/12/21 12:25 Pulse Oximetry 99 05/12/21 12:25 GENERAL: Alert 31-year-old male diaphoretic HEENT: Head atraumatic,EOMI, pupils reactive, face symmetric, moist mucous membranes CARDIOVASCULAR: Tachycardic regular RESPIRATORY: Breath sounds equal bilaterally, no wheezes rales or rhonchi. ABDOMEN: Soft, nontender. Normoactive bowel sounds all 4 quadrants. No guarding or rebound. EXTREMITIES: Normal range of motion, no clubbing or edema. Neurovascularly intact NEUROLOGICAL: Alert and oriented x4.Normal gait and speech. SKIN: Warm, dry, no laceration, no petechiae, no rashes or lesions. Procedures Cardioversion Consent Signed: No Indication: SVT Stability: Unstable Number of attempts (shocks): 1 Cardiac rhythm post-cardioversion: 120 Procedural Sedation Consent signed: No Indication: cardioversion ASA Class: III Mallampati Airway Classification: Class III IV Propofol dose (mg): 170 Intraservice time/total sedation time (min): 12 ED Sedation Level: Moderate (Concious) Patient Tolerated Procedure: Well Complications: Respiratory Depression-Repositioning Required Interventions: Airway repositioned Course Orders Ordered: ED Orders 05/12/21 12:28 XR chest 1V Stat 05/12/21 12:35 Complete Blood Count AUTO DIFF Stat Comprehensive Metabolic Panel Stat Lipase Stat Troponin & CK Cardiac Panel Stat EKG-12 Lead Stat Discontinued Medications Adenosine (Adenosine 6 Mg/2 Ml Vial) 12 mg IV NOW ONE Stop: 05/12/21 13:40 Last Admin: 05/12/21 12:40 Dose: 12 mg Documented by: CIELO Propofol (Propofol 200 Mg/20 Ml Vial) 175 mg 1 mg/kg (175 mg) IV NOW ONE Stop: 05/12/21 13:39 Last Admin: 05/12/21 12:55 Dose: 175 mg Documented by: CIELO Vital Signs Vital signs: Vital Signs - 8 hr 05/12/21 12:55 05/12/21 13:00 05/12/21 13:10 Pulse Rate 215 H 109 H Respiratory Rate 20 16 18 Blood Pressure Pulse Oximetry 98 90 L 92 05/12/21 13:35 05/12/21 18:58 Pulse Rate 109 H 238 H Respiratory Rate 20 24 Blood Pressure 145/89 H Pulse Oximetry 98 MDM - Chest Pain Lab Data Result diagrams: 05/12/21 12:35 05/12/21 12:35 Labs: Lab Results 05/12/21 05/12/21 Range/Units 12:35 12:35 WBC 10.8 (4.5-11.0) X10^3/uL RBC 5.40 (4.5-5.9) X10^6/uL Hgb 15.5 (13.5-17.5) g/dL Hct 45.3 (41-53) % MCV 83.9 (80-100) fL MCH 28.7 (26-34) PG MCHC 34.3 (30-36) % RDW 14.0 (11.6-14.8) % Plt Count 373 (150-400) X10^3/uL Neut % (Auto) 62.6 (50-75) % Lymph % (Auto) 29.1 (25-40) % [place] % (Auto) 6.8 (3-14) % Eos % (Auto) 0.8 L (2-4) % Baso % (Auto) 0.7 (0-2) % Neut # (Auto) 6800 (9428-3622) /uL Lymph # (Auto) 3200 (9616-3615) /uL [place] # (Auto) 700 (0-900) /uL Eos # (Auto) 100 (0-450) /uL Baso # (Auto) 100 (0-100) /uL Sodium 141 (137-145) mmol/L Potassium 3.5 (3.4-5.1) mmol/L Chloride 103 (98-107) mmol/L Carbon Dioxide 28 (22-32) mmol/L BUN 11 (9-20) mg/dL Creatinine 0.90 (0.66-1.25) mg/dL Estimated GFR > 60.0 (>60) mL/min BUN/Creatinine Ratio 12.2 (6-22) Glucose 121 H (70-100) mg/dL Calcium 9.7 (8.4-10.2) mg/dL Total Bilirubin 0.5 (0.2-1.3) mg/dL AST 59 (17-59) IU/L ALT 80 H (<50) IU/L Alkaline Phosphatase 70 (38-126) U/L Total Creatine Kinase 168 (55-170) U/L CK-MB (CK-2) 3.72 H (<2.37) ng/mL CK-MB (CK-2) Rel Index 2.2 (1.5-5.0) % Troponin I < 0.012 (0.01-0.034) ng/mL Total Protein 7.7 (6.3-8.2) g/dL Albumin 4.7 (3.5-5.0) g/dL Globulin 3.0 (1.7-4.1) g/dL Albumin/Globulin Ratio 1.6 (1.0-2.8) Lipase 53 (23-300) U/L Imaging Data Chest x-ray: Radiologist's Impression: PROCEDURE:? XR CHEST 1V ? INDICATIONS:? HIGH HEARTRATE AND CHEST PAIN ? TECHNIQUE:? One view of the chest was acquired.? ? COMPARISON:? [facility], , XR CHEST 1V, 04/07/2021, 18:28. ? FINDINGS:? ? Surgical changes and devices:? None.? ? Lungs and pleura:? Lungs are clear.? No pleural effusions or pneumothorax.? ? Mediastinum:? Mediastinal contours appear normal.? Heart size is normal.? ? Bones and chest wall:? No suspicious bony lesions.? Overlying soft tissues appear unremarkable.? ? IMPRESSION:? No acute cardiopulmonary process demonstrated radiographically. ? ? Dictated by: Venkat Chua M.D. on 05/12/2021 at 13:40 ? ECG Data Interpretation: EKG 1. SVT rate 228 no P-waves EKG 2. Sinus rhythm rate [address] changes PACs noted MDM Narrative Medical decision making narrative: Patient is in SVT. He immediately was tried a Valsalva maneuver which did work and converted him to sinus rhythm for a brief moment and he quickly went back into SVT. Tried adenosine 6 mg and 12 mg he was not responsive to either. The patient was then sedated and successfully cardioverted. He remained in sinus tachycardic rhythm. 1330- Dr. Whiteside, Discussion with Cardiology patient follow-up as scheduled and actually follow-up with Dr. Sullivan for possible ablation. The patient overall is feeling significantly better after he was cardioverted. Critical Care Time Critical Care Time Critical Care Time: Yes Total Critical Care Time: 45 Attestation: The high probability of a clinically significant, sudden or life threatening deterioration of the [cardiovascular] system(s) required my full and direct attention, intervention and personal management. The aggregate critical care time was [45] minutes. This time is in addition to time spent performing reported procedures but includes the following: [x] Data Review and interpretation [x] Patient assessment and monitoring of vital signs [x] Documentation [x] Medication orders and management Discharge Plan Departure Patient Disposition: Home Clinical Impression: Paroxysmal SVT (supraventricular tachycardia) Instructions: DI for Paroxysmal Supraventricular Tachycardia Activity Restrictions/Additional Instructions: *You have been diagnosed with supraventricular tachycardia *What to do: At this time your cardioverted knee emergency department. This is likely the cause of her heart palpitations. Please continue to see Cardiology today as scheduled. He may need more studies or medications. *Continue to take medications as directed *Follow up with your primary care provider in 2-3 days Follow-up cardiology today He may need to see Dr. Sullivan *Return to ER if you should have increasing heart palpitations, shortness of breath, or any new, worsening or concerning symptoms Prescriptions: No Action aspirin 81 MG tablet,delayed release (DR/EC) 81 mg PO QDAY Qty: 0 RF: 0 Referrals: Dennis Zhang MD [Primary Care Provider] - Ezequiel Sullivan MD [Physician] -
[2021-05-12 12:55] VITALS: PULSE 215; RESP 20; O2SAT 98
[2021-05-12] MEDS: propofoL 200 MG/20 ML VIAL 175 MG IV (12:55)
[2021-05-12 12:57] LABS: Add Manual Diff / Slide Review NO; Basophils Absolute Auto 100 /uL (0-100); Basophils Percent Auto 0.7 % (0-2); Eosinophils Absolute Auto 100 /uL (0-450); Eosinophils Percent Auto 0.8 % (2-4); Hematocrit 45.3 % (41-53); Hemoglobin 15.5 g/dL (13.5-17.5); Lymphocytes Absolute Auto 3200 /uL (1100-4500); Lymphocytes Percent Auto 29.1 % (25-40); Mean Corpuscular HGB Conc 34.3 % (30-36); Mean Corpuscular Hemoglobin 28.7 PG (26-34); Mean Corpuscular Volume 83.9 fL (80-100); Monocytes Absolute Auto 700 /uL (0-900); Monocytes Percent Auto 6.8 % (3-14); Neutrophils Absolute Auto 6800 /uL (1500-7000); Neutrophils Percent Auto 62.6 % (50-75); Platelet Count 373 X10^3/uL (150-400); White Blood Cell Count 10.8 X10^3/uL (4.5-11.0)
[2021-05-12 13:00] VITALS: PULSE 109; RESP 16; O2SAT 90
[2021-05-12 13:10] VITALS: RESP 18; O2SAT 92
[2021-05-12 13:11] LABS: Alanine Aminotransferase 80 IU/L (<50); Albumin 4.7 g/dL (3.5-5.0); Albumin Globulin Ratio 1.6 (1.0-2.8); Alkaline Phosphatase 70 U/L (38-126); Aspartate Aminotransferase 59 IU/L (17-59); BUN Creatinine Ratio 12.2 (6-22); Bilirubin Total 0.5 mg/dL (0.2-1.3); Blood Urea Nitrogen 11 mg/dL (9-20); Calcium 9.7 mg/dL (8.4-10.2); Carbon Dioxide 28 mmol/L (22-32); Chloride 103 mmol/L (98-107); Creatine Kinase 168 U/L (55-170); Estimated Glomerular Filt Rate > 60.0 mL/min (>60); Glucose 121 mg/dL (70-100); HEMOLYSIS < 15 (0-50); Lipase 53 U/L (23-300); Potassium 3.5 mmol/L (3.4-5.1); Sodium 141 mmol/L (137-145); Total Protein 7.7 g/dL (6.3-8.2)
[2021-05-12 13:23] LABS: Troponin I < 0.012 ng/mL (0.01-0.034)
[2021-05-12 13:26] LABS: CKMB % Relative Index 2.2 % (1.5-5.0); Creatine Kinase MB 3.72 ng/mL (<2.37)
[2021-05-12 13:35] VITALS: BP 145/89; PULSE 109; RESP 20; O2SAT 98
[2021-05-12] MEDS: ADENOSINE 6 MG/2 ML VIAL IV (13:37)
--- NOTE | 2021-05-12 13:41 | PC.NURSE ---
Patient arrived in SVT; adensosine (6mg and 12mg) were attempted after vagal maneuvers without success; 170 propofol given prior to 1 cardioversion shock @ 120joules. Patient converted to NSR @ 109HR. Recovered well from procedural sedation.
[2021-05-12 18:58] VITALS: PULSE 238; RESP 24; O2SAT 98
== END 2021-05-12 13:50 | disposition home or self-care (01) ==
PROVIDERS: Emergency Provider Emergency Medicine; PCP Student in an Organized Health Care Education/Training Program
DX: I47.1 Supraventricular tachycardia (principal)
CPT/HCPCS: 36415; 71045; 80053; 82550; 82553; 83690; 84484; 85025; 92960; 93005; 96374; 96375; 99152; 99284; 99291; J0153; J2704

== ENCOUNTER 2021-08-23 19:11 | Emergency (ER) | payer OTHER, MEDICAID, SELFPAY ==
[2021-08-23] VITALS (9 sets, daily range): BP systolic 125–191; BP diastolic 60–93; PULSE 103–215; RESP 4–26; TEMP 36.4; O2SAT 95–99; BMI 43.1
[2021-08-23] MEDS: ADENOSINE 6 MG/2 ML VIAL IV ×2 (19:22→19:23)
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
[2021-08-23] MEDS: SODIUM CHLORIDE 0.9% 1,000 ML 1000 ML IV (19:28)
[2021-08-23 19:40] LABS: Hemoglobin 16.3 g/dL (13.5-17.5); Monocytes Absolute Auto 900 /uL (0-900); Red Cell Distribution Width 13.3 % (11.6-14.8)
[2021-08-23 19:44] LABS: Add Manual Diff / Slide Review NO; Basophils Absolute Auto 100 /uL (0-100); Basophils Percent Auto 1.2 % (0-2); Eosinophils Absolute Auto 100 /uL (0-450); Eosinophils Percent Auto 1.3 % (2-4); Hematocrit 46.4 % (41-53); Lymphocytes Absolute Auto 3800 /uL (1100-4500); Lymphocytes Percent Auto 34.2 % (25-40); Mean Corpuscular HGB Conc 35.1 % (30-36); Mean Corpuscular Hemoglobin 29.5 PG (26-34); Mean Corpuscular Volume 83.9 fL (80-100); Monocytes Percent Auto 8.3 % (3-14); Neutrophils Absolute Auto 6000 /uL (1500-7000); Platelet Count 290 X10^3/uL (150-400); Red Blood Cell Count 5.53 X10^6/uL (4.5-5.9)
[2021-08-23 19:53] LABS: Alanine Aminotransferase 74 IU/L (<50); Albumin 4.7 g/dL (3.5-5.0); Albumin Globulin Ratio 1.4 (1.0-2.8); Alkaline Phosphatase 97 U/L (38-126); Aspartate Aminotransferase 49 IU/L (17-59); BUN Creatinine Ratio 14.5 (6-22); Bilirubin Total 0.4 mg/dL (0.2-1.3); Blood Urea Nitrogen 11 mg/dL (9-20); Calcium 9.3 mg/dL (8.4-10.2); Carbon Dioxide 28 mmol/L (22-32); Chloride 105 mmol/L (98-107); Estimated Glomerular Filt Rate > 60.0 mL/min (>60); Ethanol (ETOH) 43 mg/dL; Globulin 3.3 g/dL (1.7-4.1); Glucose 169 mg/dL (70-100); HEMOLYSIS 26 (0-50); Potassium 3.7 mmol/L (3.4-5.1); Sodium 141 mmol/L (137-145)
[2021-08-23 20:04] LABS: NT-proBNP (BNP-Adult 18+) 52 pg/mL (<125); Troponin I < 0.012 ng/mL (0.01-0.034)
== END 2021-08-23 21:10 | disposition home or self-care (01) ==
PROVIDERS: Emergency Provider Emergency Medicine; PCP Student in an Organized Health Care Education/Training Program
DX: I47.1 Supraventricular tachycardia (principal)
CPT/HCPCS: 36415; 80053; 80320; 83735; 83880; 84484; 85025; 93005; 93010; 96360; 99284; J0153

== ENCOUNTER → 2021-09-09 09:06 | Outpatient (CLI) | payer OTHER, MEDICAID, SELFPAY ==
[2021-09-09 12:20] LABS: Alanine Aminotransferase 54 IU/L (<50); Albumin 4.3 g/dL (3.5-5.0); Albumin Globulin Ratio 1.4 (1.0-2.8); Alkaline Phosphatase 61 U/L (38-126); Aspartate Aminotransferase 37 IU/L (17-59); BUN Creatinine Ratio 14.1 (6-22); Bilirubin Total 0.5 mg/dL (0.2-1.3); Blood Urea Nitrogen 9 mg/dL (9-20); Carbon Dioxide 31 mmol/L (22-32); Chloride 103 mmol/L (98-107); Cholesterol 121 mg/dL (140-199); Estimated Glomerular Filt Rate > 60.0 mL/min (>60); Globulin 3.1 g/dL (1.7-4.1); Glucose 132 mg/dL (70-100); HDL Cholesterol 38 mg/dL (40-60); HEMOLYSIS < 15 (0-50); LDL Cholesterol Calculated 67 mg/dL (<100); Potassium 4.1 mmol/L (3.4-5.1); Sodium 139 mmol/L (137-145); Total Protein 7.4 g/dL (6.3-8.2); Triglycerides 80 mg/dL (35-150)
[2021-09-09 12:33] LABS: Free T4, Direct Thyroxine 1.04 ng/dL (0.78-2.19)
[2021-09-09 12:47] LABS: Thyroid Stimulating Hormone 1.67 uIU/mL (0.47-4.68)
== END ==
PROVIDERS: PCP Student in an Organized Health Care Education/Training Program; Referring Provider Internal Medicine Cardiovascular Disease; Visit Provider Internal Medicine Cardiovascular Disease
DX: I47.1 Supraventricular tachycardia (principal); R00.2 Palpitations; Z68.43 Body mass index [BMI] 50.0-59.9, adult; Z13.220 Encounter for screening for lipoid disorders; I11.0 Hypertensive heart disease with heart failure
CPT/HCPCS: 36415; 80053; 80061; 83735; 84439; 84443

== ENCOUNTER 2021-09-20 03:29 | Emergency (ER) | payer OTHER, MEDICAID, SELFPAY ==
[2021-09-20] VITALS (9 sets, daily range): BP systolic 119–153; BP diastolic 55–103; PULSE 93–173; RESP 11–25; TEMP 36.8; O2SAT 93–99; BMI 50.6
--- NOTE | 2021-09-20 03:32 | DI.RAD.S_ITS ---
PROCEDURE: XR CHEST 1V INDICATIONS: Chest pain TECHNIQUE: One view of the chest was acquired. COMPARISON: [facility], CR, XR CHEST 1V, 05/12/2021, 13:15. FINDINGS: Surgical changes and devices: None. Lungs and pleura: Mild chronic interstitial prominence No pleural effusions or pneumothorax. Mediastinum: Mediastinal contours appear normal. . Mild cardiomegaly. Bones and chest wall: No suspicious bony lesions. Overlying soft tissues appear unremarkable. IMPRESSION: Mild cardiomegaly. No evidence acute pulmonary process. Comment: Final report is concordant with preliminary interpretation provided by [facility]. Dictated by: Harley Mcclure M.D. on 09/20/2021 at 6:19 Approved by: Harley Mcclure M.D. on 09/20/2021 at 6:20
--- NOTE | 2021-09-20 03:36 | ED.GENADULT ---
HPI - General Adult General Chief complaint: Arrhythmia/Palpitations Stated complaint: CHEST PAIN Time Seen by Provider: 09/20/21 03:32 Source: patient Mode of arrival: Ambulatory Limitations: no limitations History of Present Illness HPI narrative: Patient is a 31-year-old male. Has a history of SVT. Is on metoprolol for this. Has had SVT in the past requiring adenosine. He has also had cardioversions in the past. Is being followed by Cardiology. Is scheduled to have an ablation done in the next couple weeks for this. States that within the last hour arrival here to the emergency department he was woken from sleep with a fast heart rate. He feels very uncomfortable with this. It feels like his prior episodes of SVT. Has tried Valsalva maneuvers in route to the emergency department to try to break the SVT but they have been unsuccessful. Related Data Home Medications Medication Instructions Recorded Confirmed hydrochlorothiazide 12.5 mg tablet 12.5 mg PO DAILY 06/30/21 08/31/21 Previous Rx's Medication Instructions Recorded buspirone 7.5 mg tablet 7.5 mg PO BID #60 tab 08/31/21 metoprolol succinate 50 mg 50 mg PO DAILY #30 tab 08/31/21 tablet,extended release 24 hr Allergies Allergy/AdvReac Type Severity Reaction Status Date / Time amoxicillin [AMOXICILLIN] Allergy Severe HIVES Verified 08/31/21 16:50 Penicillins [PENICILLINS] Allergy Severe Rash Verified 08/31/21 16:50 Review of Systems Review of Systems ROS Unobtainable: All systems reviewed & are unremarkable except as noted in HPI and below Patient History Medical History Colitis Dysmetabolic syndrome Essential hypertension GERD (gastroesophageal reflux disease) (02/10/11) Heroin use disorder, moderate, in sustained remission Laceration of left index finger Methamphetamine abuse in remission Morbid obesity Observed sleep apnea PSVT (paroxysmal supraventricular tachycardia) Puncture wound Splenic infarct Social History Smoking Status: Former smoker (started 01/2003 stopped 07/2017 1pk a day) Smoking Status: Former smoker (started 01/2003 stopped 07/2017 1pk a day) alcohol intake frequency: holidays/special occasions only Substance Use Type: does not use Exam Initial Vital Signs Initial Vital Signs: Vital Signs Temperature 98.3 F 09/20/21 03:35 Pulse Rate 173 H 09/20/21 03:35 Respiratory Rate 19 09/20/21 03:35 Blood Pressure 153/103 H 09/20/21 03:35 Pulse Oximetry 99 09/20/21 03:35 Const General: cooperative, well groomed and No ill appearing HENMT Head: normal to inspection and normocephalic Eyes General: appearance normal, both eyes and all related structures Resp Effort & Inspection: normal respiratory effort Auscultation: clear to auscultation bilaterally Cardio Rate: tachycardic Rhythm: regular rhythm GI Inspection: normal to inspection Palpation: soft and No tender Skin General: no rashes or lesions noted Neuro General: patient alert, patient awake, patient oriented x3 and moves all extremities Extrem General: normal to inspection and capillary refill normal Psych Appearance: grossly normal and well kempt Procedures Cardioversion Consent Signed: Yes Indication: SVT Stability: Stable Number of attempts (shocks): 1 Joules used: 120 Cardiac rhythm post-cardioversion: Sinus rhythm Procedural Sedation Consent signed: Yes Time out performed: Yes Indication: cardioversion Presedation Evaluation: SVT Preparation: solar lab technician applied, pulse oximeter, capnometry used, supplemental O2 applied, suction/airway equipment at bedside and IV secured IV Propofol dose (mg): 120 Intraservice time/total sedation time (min): 10 ED Sedation Level: Moderate (Concious) Patient Tolerated Procedure: Well and No complications Course Orders Ordered: ED Orders 09/20/21 EKG-12 Lead Routine 09/20/21 03:32 XR chest 1V Stat 09/20/21 03:37 EKG-12 Lead Stat 09/20/21 03:49 RT Consult Eval and Treat Now 09/20/21 03:50 Basic Metabolic Panel Stat Complete Blood Count AUTO DIFF Stat Magnesium Stat Discontinued Medications Adenosine (Adenosine 6 Mg/2 Ml Vial) 12 mg IV NOW ONE Stop: 09/20/21 03:37 Last Admin: 09/20/21 03:40 Dose: 12 mg Documented by: RAAD Sodium Chloride (Normal Saline 0.9%) 1,000 mls @ 1,000 mls/hr IV BOLUS ONE Stop: 09/20/21 04:35 Last Admin: 09/20/21 04:27 Dose: 1,000 mls/hr Documented by: RAAD Propofol (Propofol 200 Mg/20 Ml Vial) 100 mg IV NOW ONE Stop: 09/20/21 03:49 Last Admin: 09/20/21 04:28 Dose: Not Given Documented by: RAAD Propofol (Propofol 200 Mg/20 Ml Vial) 185 mg 1 mg/kg (185 mg) IV NOW ONE Stop: 09/20/21 04:27 Last Admin: 09/20/21 04:03 Dose: 120 mg Documented by: RAAD Vital Signs Vital signs: Vital Signs - 8 hr 09/20/21 03:35 09/20/21 03:50 09/20/21 04:00 Temperature 98.3 F Pulse Rate 173 H 173 H 161 H Respiratory Rate 19 20 16 Blood Pressure 153/103 H Pulse Oximetry 99 97 09/20/21 04:06 09/20/21 04:10 09/20/21 04:15 Temperature Pulse Rate 100 H 97 H 103 H Respiratory Rate 15 21 25 H Blood Pressure 130/58 L 119/55 L 123/59 L Pulse Oximetry 97 96 96 09/20/21 04:20 09/20/21 04:25 09/20/21 04:30 Temperature Pulse Rate 93 H 94 H 93 H Respiratory Rate 13 13 11 L Blood Pressure 140/70 139/68 137/64 Pulse Oximetry 93 94 94 Medical Decision Making Lab Data Lab results reviewed: Yes I reviewed the patient's lab results. Result diagrams: 09/20/21 03:50 09/20/21 03:50 Labs: Lab Results 09/20/21 09/20/21 Range/Units 03:50 03:50 WBC 9.3 (4.5-11.0) X10^3/uL RBC 5.25 (4.5-5.9) X10^6/uL Hgb 15.0 (13.5-17.5) g/dL Hct 44.7 (41-53) % MCV 85.1 (80-100) fL MCH 28.5 (26-34) PG MCHC 33.5 (30-36) % RDW 13.6 (11.6-14.8) % Plt Count 262 (150-400) X10^3/uL Neut % (Auto) 71.3 (50-75) % Lymph % (Auto) 19.6 L (25-40) % [place] % (Auto) 6.1 (3-14) % Eos % (Auto) 1.1 L (2-4) % Baso % (Auto) 1.9 (0-2) % Neut # (Auto) 6600 (5149-0753) /uL Lymph # (Auto) 1800 (6301-0115) /uL [place] # (Auto) 600 (0-900) /uL Eos # (Auto) 100 (0-450) /uL Baso # (Auto) 200 H (0-100) /uL Sodium 140 (137-145) mmol/L Potassium 4.2 (3.4-5.1) mmol/L Chloride 101 (98-107) mmol/L Carbon Dioxide 32 (22-32) mmol/L BUN 13 (9-20) mg/dL Creatinine 0.69 (0.66-1.25) mg/dL Estimated GFR > 60.0 (>60) mL/min BUN/Creatinine Ratio 18.8 (6-22) Glucose 149 H (70-100) mg/dL Calcium 9.0 (8.4-10.2) mg/dL Magnesium 2.1 (1.6-2.3) mg/dL Imaging Data Chest x-ray: Attestation: I personally reviewed and interpreted this imaging study as follows: My Impression: No acute pathology, enlarged heart ECG Data Attestation: I personally reviewed and interpreted this ECG as follows: Interpretation: Presentation EKG SVT Ventricular rate [address] T wave changes Post cardioversion EKG Sinus rhythm Ventricular rate 94 Normal axis Normal QRS Normal QTC No ST T wave changes MDM Narrative Medical decision making narrative: Patient does have a history of SVT. Is on metoprolol. Is scheduled to have an ablation performed. Arrived less than 1 hour after the onset of symptoms. Patient is tachycardic. Regular narrow complex with a heart rate in the 160s. It did reach to the 180s. Considered a-fib with 2-1 block however given his history I am more concerned about SVT. Was given 12 mg of adenosine without any resolution of symptoms. This was repeated with another 12 mg of adenosine and once again no resolution of symptoms. Patient was consented for cardioversion and sedation. Consent was signed. Expressed understanding the risks and benefits. Successful cardioversion to sinus rhythm with heart rate less than 100 after 1 attempt. Patient tolerated procedure well. Will have him continue all of his medications as directed. 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 He was given return precautions. He expressed understanding and agreement. Discharge Plan Departure Patient Disposition: Home Clinical Impression: SVT (supraventricular tachycardia) Instructions: DI for Paroxysmal Supraventricular Tachycardia Activity Restrictions/Additional Instructions: I recommend that you continue to take all of your medications as directed. Keep all of your scheduled medical appointments to include your garment presser. Return to the emergency department for any new or worsening symptoms. Prescriptions: No Action hydrochlorothiazide 12.5 mg tablet 12.5 mg PO DAILY 0RF buspirone 7.5 mg tablet 7.5 mg PO BID Qty: 60 0RF metoprolol succinate 50 mg tablet extended release 24 hr 50 mg PO DAILY Qty: 30 1RF Referrals: Dennis Zhang MD [Primary Care Provider] -
[2021-09-20] MEDS: ADENOSINE 6 MG/2 ML VIAL 12 MG IV ×2 (03:40→03:48)
[2021-09-20 04:03] LABS: Add Manual Diff / Slide Review NO; Basophils Absolute Auto 200 /uL (0-100); Basophils Percent Auto 1.9 % (0-2); Eosinophils Absolute Auto 100 /uL (0-450); Eosinophils Percent Auto 1.1 % (2-4); Hematocrit 44.7 % (41-53); Lymphocytes Absolute Auto 1800 /uL (1100-4500); Lymphocytes Percent Auto 19.6 % (25-40); Mean Corpuscular HGB Conc 33.5 % (30-36); Mean Corpuscular Hemoglobin 28.5 PG (26-34); Mean Corpuscular Volume 85.1 fL (80-100); Monocytes Absolute Auto 600 /uL (0-900); Monocytes Percent Auto 6.1 % (3-14); Neutrophils Absolute Auto 6600 /uL (1500-7000); Neutrophils Percent Auto 71.3 % (50-75); Platelet Count 262 X10^3/uL (150-400); Red Blood Cell Count 5.25 X10^6/uL (4.5-5.9); Red Cell Distribution Width 13.6 % (11.6-14.8); White Blood Cell Count 9.3 X10^3/uL (4.5-11.0)
[2021-09-20] MEDS: propofoL 200 MG/20 ML VIAL 185 MG IV (04:03)
[2021-09-20 04:08] LABS: BUN Creatinine Ratio 18.8 (6-22); Blood Urea Nitrogen 13 mg/dL (9-20); Carbon Dioxide 32 mmol/L (22-32); Chloride 101 mmol/L (98-107); Estimated Glomerular Filt Rate > 60.0 mL/min (>60); Glucose 149 mg/dL (70-100); HEMOLYSIS 16 (0-50); Magnesium 2.1 mg/dL (1.6-2.3); Potassium 4.2 mmol/L (3.4-5.1); Sodium 140 mmol/L (137-145)
[2021-09-20] MEDS: SODIUM CHLORIDE 0.9% 1,000 ML 1000 ML IV (04:27)
== END 2021-09-20 04:58 | disposition home or self-care (01) ==
PROVIDERS: Emergency Provider Emergency Medicine; PCP Student in an Organized Health Care Education/Training Program
DX: I47.1 Supraventricular tachycardia (principal); Z87.891 Personal history of nicotine dependence; Z79.899 Other long term (current) drug therapy
CPT/HCPCS: 36415; 71045; 80048; 83735; 85025; 92960; 93005; 99152; 99284; 99285; J0153; J2704

== ENCOUNTER 2021-11-18 11:07 | Emergency (ER) | payer OTHER, MEDICAID, SELFPAY ==
[2021-11-18] VITALS (8 sets, daily range): BP systolic 125–170; BP diastolic 60–95; PULSE 53–86; RESP 11–22; TEMP 35.5; O2SAT 94–99; BMI 50.0
--- NOTE | 2021-11-18 11:22 | DI.RAD.S_ITS ---
PROCEDURE: XR CHEST 1V INDICATIONS: chest pain TECHNIQUE: One view of the chest was acquired. COMPARISON: [facility], CR, XR CHEST 1V, 04/07/2021, 17:40. [facility], CR, XR CHEST 1V, 04/07/2021, 18:28. [facility], CR, XR CHEST 1V, 05/12/2021, 13:15. [facility], CR, XR CHEST 1V, 09/20/2021, 3:39. FINDINGS: Surgical changes and devices: None. Lungs and pleura: An incomplete inspiratory result is noted, causing a crowded appearance to the lung markings. No focal infiltrates are seen. No pneumothorax or significant pleural effusions are seen. Mediastinum: Mediastinal contours appear normal. Heart size is normal. Bones and chest wall: No suspicious bony lesions. Overlying soft tissues appear unremarkable. This study is limited by body habitus. IMPRESSION: Portable chest within normal limits. Dictated by: Juan Chan M.D. on 11/18/2021 at 11:12 Approved by: Juan Chan M.D. on 11/18/2021 at 11:15
[2021-11-18 12:14] LABS: Add Manual Diff / Slide Review NO; Basophils Absolute Auto 0 /uL (0-100); Basophils Percent Auto 0.8 % (0-2); Eosinophils Absolute Auto 0 /uL (0-450); Eosinophils Percent Auto 0.8 % (2-4); Hematocrit 38.4 % (41-53); Hemoglobin 13.4 g/dL (13.5-17.5); Lymphocytes Absolute Auto 1100 /uL (1100-4500); Lymphocytes Percent Auto 20.5 % (25-40); Mean Corpuscular HGB Conc 34.8 % (30-36); Mean Corpuscular Hemoglobin 28.7 PG (26-34); Mean Corpuscular Volume 82.4 fL (80-100); Monocytes Absolute Auto 300 /uL (0-900); Monocytes Percent Auto 5.9 % (3-14); Neutrophils Absolute Auto 4000 /uL (1500-7000); Platelet Count 211 X10^3/uL (150-400); Red Blood Cell Count 4.66 X10^6/uL (4.5-5.9); Red Cell Distribution Width 13.5 % (11.6-14.8); White Blood Cell Count 5.5 X10^3/uL (4.5-11.0)
[2021-11-18 12:15] LABS: INR 1.3 (0.9-1.3); Prothrombin Time 14.9 SECONDS (10.1-12.7)
[2021-11-18 12:18] LABS: Alanine Aminotransferase 51 IU/L (<50); Albumin 4.2 g/dL (3.5-5.0); Albumin Globulin Ratio 1.4 (1.0-2.8); Alkaline Phosphatase 57 U/L (38-126); Aspartate Aminotransferase 41 IU/L (17-59); BUN Creatinine Ratio 15.9 (6-22); Bilirubin Total 0.5 mg/dL (0.2-1.3); Blood Urea Nitrogen 11 mg/dL (9-20); Calcium 9.1 mg/dL (8.4-10.2); Carbon Dioxide 32 mmol/L (22-32); Chloride 103 mmol/L (98-107); Creatine Kinase 326 U/L (55-170); Estimated Glomerular Filt Rate > 60 mL/min (>60); Globulin 3.1 g/dL (1.7-4.1); Glucose 148 mg/dL (70-100); HEMOLYSIS < 15 (0-50); Lipase 43 U/L (23-300); Magnesium 1.9 mg/dL (1.6-2.3); PTT Partial Thromboplastin Tim 38 SECONDS (26.4-36.2); Sodium 139 mmol/L (137-145); Total Protein 7.3 g/dL (6.3-8.2)
[2021-11-18 12:28] LABS: NT-proBNP (BNP-Adult 18+) 131 pg/mL (<125); Troponin I < 0.012 ng/mL (0.01-0.034)
[2021-11-18 12:33] LABS: CKMB % Relative Index 0.9 % (1.5-5.0); Creatine Kinase MB 3.03 ng/mL (<2.37)
--- NOTE | 2021-11-18 13:23 | ED_ITS ---
HPI - Arrhythmia/Palpitations General Chief Complaint: Arrhythmia/Palpitations Stated Complaint: Legs swollen/painful post cardiac surgery Time Seen by Provider: 11/18/21 12:29 Source: patient Mode of arrival: Ambulatory History of Present Illness HPI narrative: Patient is a 31-year-old male history of obesity, paroxysmal supraventricular tachycardia, hypertension prior history of methamphetamine and heroin a presenting today with swollen legs. He actually has had 3 episodes since April of SVT he finally got an ablation a couple weeks ago. He says his heart rate is better however since then he has had increasing swelling in his legs. He says he feels short of breath at rest and with exertion. He denies any fever or cough. No chest pain or palpitations. He says his heart rate does increase of the time but then it quickly comes back down. His biggest concern is that his legs are swollen and painful. He says by the end of the day his legs no longer fit in his work boots. Related Data Home Medications Medication Instructions Recorded Confirmed hydrochlorothiazide 12.5 mg tablet 12.5 mg PO DAILY 06/30/21 08/31/21 Previous Rx's Medication Instructions Recorded buspirone 7.5 mg tablet 7.5 mg PO BID #60 tab 08/31/21 metoprolol succinate 50 mg 50 mg PO DAILY #30 tab 08/31/21 tablet,extended release 24 hr furosemide 20 mg tablet (Lasix) 20 mg PO QAM #3 tab 11/18/21 Allergies Allergy/AdvReac Type Severity Reaction Status Date / Time amoxicillin [AMOXICILLIN] Allergy Severe HIVES Verified 08/31/21 16:50 Penicillins [PENICILLINS] Allergy Severe Rash Verified 08/31/21 16:50 Review of Systems Review of Systems Narrative: GENERAL: Denies chills, fatigue, malaise, fever, sweats, travel HEENT: Denies sinus pain, ear pain, sore throat, difficulty swallowing, neck pain RESPIRATORY: Denies dyspnea, cough, wheezing, hemoptysis, sputum. CARDIOVASCULAR: See HPI GASTROINTESTINAL: Denies nausea, vomiting, abdominal pain, diarrhea, constipation, melena. : Denies dysuria, frequency, incontinence, hematuria, urinary retention, flank pain. MUSCULOSKELETAL: Denies weakness, joint pain, or bony pain SKIN: No rash, no erythema, no pruritus NEUROLOGIC: Denies weakness, dizziness, headache, numbness, change in speech, confusion PSYCHIATRIC: No concerning psychosocial issues. 12 point review of systems is negative except for those stated above and HPI Patient History Medical History Colitis Dysmetabolic syndrome Essential hypertension GERD (gastroesophageal reflux disease) (02/10/11) Heroin use disorder, moderate, in sustained remission Laceration of left index finger Methamphetamine abuse in remission Morbid obesity Observed sleep apnea PSVT (paroxysmal supraventricular tachycardia) Puncture wound Splenic infarct Social History Smoking Status: Current every day smoker Smoking Status: Current every day smoker tobacco type: cigarettes alcohol intake frequency: holidays/special occasions only Substance Use Type: opiates Exam Initial Vital Signs Initial Vital Signs: Vital Signs Temperature 96 F L 11/18/21 11:13 Pulse Rate 73 11/18/21 11:13 Respiratory Rate 22 11/18/21 11:13 Blood Pressure 149/87 H 11/18/21 11:13 Pulse Oximetry 97 11/18/21 11:13 GENERAL: Alert 31-year-old male BMI 50 HEENT: Head atraumatic,EOMI, pupils reactive, face symmetric, moist mucous membranes CARDIOVASCULAR: Regular rate and rhythm without murmurs, rubs or gallops. RESPIRATORY: Breath sounds equal bilaterally, no wheezes rales or rhonchi. ABDOMEN: Soft, nontender. Normoactive bowel sounds all 4 quadrants. No guarding or rebound. EXTREMITIES: Bilateral +2 pitting edema Normal range of motion, no clubbing. Neurovascularly intact NEUROLOGICAL: Alert and oriented x4.Normal gait and speech. Cranial nerves II through XII grossly intact. SKIN: Slightly erythematous bilateral lower extremity Course Orders Ordered: ED Orders 11/18/21 11:55 Complete Blood Count AUTO DIFF Stat Comprehensive Metabolic Panel Stat D Dimer Stat Lipase Stat Magnesium Stat NT-proBNP (BNP-Adult 18+) Stat Partial Thromboplastin Time Stat Prothrombin Time INR Stat Troponin & CK Cardiac Panel Stat 11/18/21 13:31 US periph venous low extrem bi Stat 11/18/21 14:16 Urine Drug Screen, Rapid Stat Discontinued Medications Furosemide (Furosemide 40 Mg/4 Ml Vial) 40 mg IV NOW ONE Stop: 11/18/21 13:32 Last Admin: 11/18/21 13:38 Dose: 40 mg Documented by: NRHOADS Vital Signs Vital signs: Vital Signs - 8 hr 11/18/21 12:34 11/18/21 13:00 11/18/21 13:30 Pulse Rate 65 53 L 73 Respiratory Rate 13 11 L 13 Blood Pressure 125/60 126/62 133/63 Pulse Oximetry 97 96 98 11/18/21 14:00 11/18/21 14:30 11/18/21 15:00 Pulse Rate 69 86 63 Respiratory Rate 20 14 Blood Pressure 141/68 H Pulse Oximetry 98 97 94 11/18/21 15:39 Pulse Rate 70 Respiratory Rate Blood Pressure 170/95 H Pulse Oximetry 99 MDM - Arrhythmia/Palpitations Lab Data Result diagrams: 11/18/21 11:55 11/18/21 11:55 Labs: Lab Results 11/18/21 11/18/21 11/18/21 Range/Units 11:55 11:55 11:55 WBC 5.5 (4.5-11.0) X10^3/uL RBC 4.66 (4.5-5.9) X10^6/uL Hgb 13.4 L (13.5-17.5) g/dL Hct 38.4 L (41-53) % MCV 82.4 (80-100) fL MCH 28.7 (26-34) PG MCHC 34.8 (30-36) % RDW 13.5 (11.6-14.8) % Plt Count 211 (150-400) X10^3/uL Neut % (Auto) 72.0 (50-75) % Lymph % (Auto) 20.5 L (25-40) % [place] % (Auto) 5.9 (3-14) % Eos % (Auto) 0.8 L (2-4) % Baso % (Auto) 0.8 (0-2) % Neut # (Auto) 4000 (2213-0151) /uL Lymph # (Auto) 1100 (2512-2037) /uL [place] # (Auto) 300 (0-900) /uL Eos # (Auto) 0 (0-450) /uL Baso # (Auto) 0 (0-100) /uL PT 14.9 H (10.1-12.7) SECONDS INR 1.3 (0.9-1.3) APTT 38 H (26.4-36.2) SECONDS D-Dimer (<230) ng/mL Sodium 139 (137-145) mmol/L Potassium 4.0 (3.4-5.1) mmol/L Chloride 103 (98-107) mmol/L Carbon Dioxide 32 (22-32) mmol/L BUN 11 (9-20) mg/dL Creatinine 0.69 (0.66-1.25) mg/dL Estimated GFR > 60 (>60) mL/min BUN/Creatinine Ratio 15.9 (6-22) Glucose 148 H (70-100) mg/dL Calcium 9.1 (8.4-10.2) mg/dL Magnesium 1.9 (1.6-2.3) mg/dL Total Bilirubin 0.5 (0.2-1.3) mg/dL AST 41 (17-59) IU/L ALT 51 H (<50) IU/L Alkaline Phosphatase 57 (38-126) U/L Total Creatine Kinase 326 H (55-170) U/L CK-MB (CK-2) 3.03 H (<2.37) ng/mL CK-MB (CK-2) Rel Index 0.9 L (1.5-5.0) % Troponin I < 0.012 (0.01-0.034) ng/mL NT-Pro-B Natriuret Pep 131 H (<125) pg/mL Total Protein 7.3 (6.3-8.2) g/dL Albumin 4.2 (3.5-5.0) g/dL Globulin 3.1 (1.7-4.1) g/dL Albumin/Globulin Ratio 1.4 (1.0-2.8) Lipase 43 (23-300) U/L U Opiates 300ng/mL cut (Negative) Ur Oxycodone Screen (Negative) Urine Methadone Screen (Negative) Ur Barbiturates Screen (Negative) U Tricyclic Antidepress (Negative) Ur Phencyclidine Scrn (Negative) Ur Amphetamines Screen (Negative) U Methamphetamines Scrn (Negative) Ur MDMA Scrn (Ecstasy) (Negative) U Benzodiazepines Scrn (Negative) Urine Cocaine Screen (Negative) U Marijuana (THC) Screen (Negative) 11/18/21 11/18/21 Range/Units 11:55 14:16 WBC (4.5-11.0) X10^3/uL RBC (4.5-5.9) X10^6/uL Hgb (13.5-17.5) g/dL Hct (41-53) % MCV (80-100) fL MCH (26-34) PG MCHC (30-36) % RDW (11.6-14.8) % Plt Count (150-400) X10^3/uL Neut % (Auto) (50-75) % Lymph % (Auto) (25-40) % [place] % (Auto) (3-14) % Eos % (Auto) (2-4) % Baso % (Auto) (0-2) % Neut # (Auto) (4222-1396) /uL Lymph # (Auto) (1395-1200) /uL [place] # (Auto) (0-900) /uL Eos # (Auto) (0-450) /uL Baso # (Auto) (0-100) /uL PT (10.1-12.7) SECONDS INR (0.9-1.3) APTT (26.4-36.2) SECONDS D-Dimer < 200 (<230) ng/mL Sodium (137-145) mmol/L Potassium (3.4-5.1) mmol/L Chloride (98-107) mmol/L Carbon Dioxide (22-32) mmol/L BUN (9-20) mg/dL Creatinine (0.66-1.25) mg/dL Estimated GFR (>60) mL/min BUN/Creatinine Ratio (6-22) Glucose (70-100) mg/dL Calcium (8.4-10.2) mg/dL Magnesium (1.6-2.3) mg/dL Total Bilirubin (0.2-1.3) mg/dL AST (17-59) IU/L ALT (<50) IU/L Alkaline Phosphatase (38-126) U/L Total Creatine Kinase (55-170) U/L CK-MB (CK-2) (<2.37) ng/mL CK-MB (CK-2) Rel Index (1.5-5.0) % Troponin I (0.01-0.034) ng/mL NT-Pro-B Natriuret Pep (<125) pg/mL Total Protein (6.3-8.2) g/dL Albumin (3.5-5.0) g/dL Globulin (1.7-4.1) g/dL Albumin/Globulin Ratio (1.0-2.8) Lipase (23-300) U/L U Opiates 300ng/mL cut Positive H (Negative) Ur Oxycodone Screen Negative (Negative) Urine Methadone Screen Negative (Negative) Ur Barbiturates Screen Negative (Negative) U Tricyclic Antidepress Negative (Negative) Ur Phencyclidine Scrn Negative (Negative) Ur Amphetamines Screen Negative (Negative) U Methamphetamines Scrn Negative (Negative) Ur MDMA Scrn (Ecstasy) Negative (Negative) U Benzodiazepines Scrn Negative (Negative) Urine Cocaine Screen Negative (Negative) U Marijuana (THC) Screen Negative (Negative) Urine Dip Bedside Urine Glucose Negative Bedside Urine Bilirubin - Negative Bedside Urine Ketone - Negative Urine Specific [place] 1.015 Bedside Urine Occult Blood - Negative Bedside Urine pH 6.5 Bedside Urine Protein - Negative Bedside Urine Urobilinogen - Negative Bedside Urine Nitrite - Negative Bedside Urine Leukocytes - Negative Esterase Imaging Data US - DVT: Radiologist's Impresson: Bull Red MR#: [id number] : 1990 Acct:[id number] Age/Sex: 31 / M Date of Service: 11/18/21 Loc: ED Accession Number: [id number] ?? Procedure: US periph venous low extrem bi Ordering Provider: Lindsay Lozoya D.O. PROCEDURE:? US PERIPH VENOUS LOW EXTREM BI ? INDICATIONS:? SWELLING ? TECHNIQUE:? Real-time imaging, as well as color and pulse Doppler interrogation, were performed of the deep veins of both legs from the inguinal ligament to the popliteal fossa.? ? COMPARISON:? [facility], CR, XR CHEST 1V, 11/18/2021, 11:50. ? FINDINGS:? ? Right: The common femoral, femoral and popliteal veins are normally compressible, and free of intraluminal thrombus.? Color and pulse Doppler demonstrate normal phasic intravascular flow.? There is normal augmentation response to distal compression maneuver.? ? Left: The common femoral, femoral and popliteal veins are normally compressible, and free of intraluminal thrombus.? Color and pulse Doppler demonstrate normal phasic intravascular flow.? There is normal augmentation response to distal compression maneuver.? ? ? IMPRESSION:? No deep vein thrombosis of the bilateral lower extremities. ? ? Dictated by: Aminata Dutta M.D. on 11/18/2021 at 15:16 ? Chest x-ray: Radiologist's Impresson: Bull Red MR#: [id number] : 1990 Acct:[id number] Age/Sex: 31 / M Date of Service: 11/18/21 Loc: ED Accession Number: [id number] ?? Procedure: XR chest 1V Ordering Provider: Lindsay Lozoya D.O. PROCEDURE:? XR CHEST 1V ? INDICATIONS:? chest pain ? TECHNIQUE:? One view of the chest was acquired.? ? COMPARISON:? [facility], CR, XR CHEST 1V, 04/07/2021, 17:40.? [facility], CR, XR CHEST 1V, 04/07/2021, 18:28.? [facility], CR, XR CHEST 1V, 05/12/2021, 13:15.? [facility], CR, XR CHEST 1V, 09/20/2021, 3:39. ? FINDINGS:? ? Surgical changes and devices:? None.? ? Lungs and pleura:? An incomplete inspiratory result is noted, causing a crowded appearance to the lung markings.? No focal infiltrates are seen.? No pneumothorax or significant pleural effusions are seen. ? ? Mediastinum:? Mediastinal contours appear normal.? Heart size is normal.? ? Bones and chest wall:? No suspicious bony lesions.? Overlying soft tissues [place] unremarkable.? ? This study is limited by body habitus. ? ? IMPRESSION:? ? Portable chest within normal limits. ? ? ? Dictated by: Juan Chan M.D. on 11/18/2021 at 11:12 ? ? ECG Data Interpretation: Normal sinus rhythm rate 62 MS interval 174 QRS [address] changes no T- wave inversions similar to previous EKG MDM Narrative Medical decision making narrative: Patient does have significant swelling of the bilateral lower extremities. He has a negative D-dimer and negative ultrasound. BNP is also low and he has no respiratory issues. Patient says that his legs also get worse throughout the day there is probably some chronic venous stasis present as well. I encouraged him to wear compression socks. I have given him 1 dose of Lasix in the ED he has urinated multiple times. Recommend outpatient follow-up with an echocardio gram either with his primary care provider or his insurance account assistant. Discharge Plan Departure Patient Disposition: Home Clinical Impression: Bilateral edema of lower extremity Instructions: Edema Activity Restrictions/Additional Instructions: *You have been diagnosed with lower extremity edema *What to do: Fortunately you do not have blood clots in your legs. I did do recommend you follow-up with your insurance account assistant for possible echocardiogram. Please be in contact with them *Continue to take medications as directed Lasix 20 mg once a day for [address] [facility] in and according *Follow up with your primary care provider in 2-3 days or call [phone] *Return to ER if you should have increasing leg swelling, chest pain, palpitations, shortness of breath or any new, worsening or concerning symptoms Prescriptions: New furosemide [Lasix] 20 mg tablet 20 mg PO QAM Qty: 3 0RF No Action hydrochlorothiazide 12.5 mg tablet 12.5 mg PO DAILY 0RF buspirone 7.5 mg tablet 7.5 mg PO BID Qty: 60 0RF metoprolol succinate 50 mg tablet extended release 24 hr 50 mg PO DAILY Qty: 30 1RF Referrals: Dennis Zhang MD [Primary Care Provider] - Ezequiel Sullivan MD [Physician] -
--- NOTE | 2021-11-18 13:31 | DI.US.S_ITS ---
PROCEDURE: US PERIPH VENOUS LOW EXTREM BI INDICATIONS: SWELLING TECHNIQUE: Real-time imaging, as well as color and pulse Doppler interrogation, were performed of the deep veins of both legs from the inguinal ligament to the popliteal fossa. COMPARISON: [facility], CR, XR CHEST 1V, 11/18/2021, 11:50. FINDINGS: Right: The common femoral, femoral and popliteal veins are normally compressible, and free of intraluminal thrombus. Color and pulse Doppler demonstrate normal phasic intravascular flow. There is normal augmentation response to distal compression maneuver. Left: The common femoral, femoral and popliteal veins are normally compressible, and free of intraluminal thrombus. Color and pulse Doppler demonstrate normal phasic intravascular flow. There is normal augmentation response to distal compression maneuver. IMPRESSION: No deep vein thrombosis of the bilateral lower extremities. Dictated by: Aminata Dutta M.D. on 11/18/2021 at 15:16 Approved by: Aminata Dutta M.D. on 11/18/2021 at 15:16
[2021-11-18] MEDS: FUROSEMIDE 40 MG/4 ML VIAL IV (13:38)
[2021-11-18 13:59] LABS: D Dimer < 200 ng/mL (<230)
[2021-11-18 14:23] LABS: UR Morphine/Opiate cutoff 300 Positive (Negative); Ur Creatinine Normal (Normal); Ur Specific Gravity Normal (Normal); Urine Amphetamines Negative (Negative); Urine Barbiturates Negative (Negative); Urine Benzodiazepines Negative (Negative); Urine Cocaine Negative (Negative); Urine MDMA Negative (Negative); Urine Methadone Negative (Negative); Urine Methamphetamines Negative (Negative); Urine Oxycodone Negative (Negative); Urine Phencyclidine Negative (Negative); Urine Tetrahydrocannabinol Negative (Negative); Urine Tricyclic Antidepressant Negative (Negative); Urine pH Normal (Normal)
== END 2021-11-18 15:41 | disposition home or self-care (01) ==
PROVIDERS: Emergency Provider Emergency Medicine; PCP Student in an Organized Health Care Education/Training Program
DX: R60.0 Localized edema (principal); R06.02 Shortness of breath; R07.9 Chest pain, unspecified
CPT/HCPCS: 36415; 71045; 80053; 80305; 81003; 82550; 82553; 83690; 83735; 83880; 84484; 85025; 85379; 85610; 85730; 93005; 93010; 93970; 96374; 99284; J1940

== ENCOUNTER 2021-11-29 06:42 | Emergency (ER) | payer OTHER, MEDICAID, SELFPAY ==
[2021-11-29 06:50] VITALS: BP 148/87; PULSE 190; RESP 25; TEMP 36.3; O2SAT 98; BMI 50.0
[2021-11-29] MEDS: dilTIAZem 5 MG/ML SDV 20 MG IV (06:50)
--- NOTE | 2021-11-29 07:00 | ED.ARRPALP ---
HPI - Arrhythmia/Palpitations General Chief Complaint: Arrhythmia/Palpitations Stated Complaint: sob heart Time Seen by Provider: 11/29/21 06:48 History of Present Illness HPI narrative: Patient is a 31-year-old male history of SVT, obesity presenting today with heart palpitations and SVT. His last episode of SVT was in September, and before that August. He has had an ablation about 1 month ago. He is supposed to take metoprolol is 50 mg twice a day however he frequently forgets. He said he woke up from a sleep this morning. He had a nightmare felt like his heart was racing it has only been going on for about 15 minutes and came to the ED. He is again in SVT with heart rate in the 155. A was here last week I saw him for swelling in the legs. He was put on Lasix that has improved significantly. He denies any shortness of breath. He was seen evaluated by his primary care provider 3 days ago for his last ED visit follow-up, unfortunately the note is not complete. Related Data Home Medications Medication Instructions Recorded Confirmed hydrochlorothiazide 12.5 mg tablet 12.5 mg PO DAILY 06/30/21 08/31/21 Previous Rx's Medication Instructions Recorded buspirone 7.5 mg tablet 7.5 mg PO BID #60 tab 08/31/21 metoprolol succinate 50 mg 50 mg PO DAILY #30 tab 08/31/21 tablet,extended release 24 hr furosemide 20 mg tablet (Lasix) 20 mg PO QAM #3 tab 11/18/21 Allergies Allergy/AdvReac Type Severity Reaction Status Date / Time amoxicillin [AMOXICILLIN] Allergy Severe HIVES Verified 08/31/21 16:50 Penicillins [PENICILLINS] Allergy Severe Rash Verified 08/31/21 16:50 Review of Systems Review of Systems Narrative: GENERAL: Denies chills, fatigue, malaise, fever, sweats, travel HEENT: Denies sinus pain, ear pain, sore throat, difficulty swallowing, neck pain RESPIRATORY: Denies dyspnea, cough, wheezing, hemoptysis, sputum. CARDIOVASCULAR: See HPI GASTROINTESTINAL: Denies nausea, vomiting, abdominal pain, diarrhea, constipation, melena. : Denies dysuria, frequency, incontinence, hematuria, urinary retention, flank pain. MUSCULOSKELETAL: Denies weakness, joint pain, or bony pain SKIN: No rash, no erythema, no pruritus NEUROLOGIC: Denies weakness, dizziness, headache, numbness, change in speech, confusion PSYCHIATRIC: No concerning psychosocial issues. 12 point review of systems is negative except for those stated above and HPI Patient History Medical History Colitis Dysmetabolic syndrome Essential hypertension GERD (gastroesophageal reflux disease) (02/10/11) Heroin use disorder, moderate, in sustained remission Laceration of left index finger Methamphetamine abuse in remission Morbid obesity Observed sleep apnea PSVT (paroxysmal supraventricular tachycardia) Puncture wound Splenic infarct Social History Smoking Status: Current every day smoker Smoking Status: Current every day smoker tobacco type: cigarettes alcohol intake frequency: holidays/special occasions only Substance Use Type: opiates Exam Initial Vital Signs Initial Vital Signs: Vital Signs Temperature 97.3 F L 11/29/21 06:50 Pulse Rate 190 H 11/29/21 06:50 Respiratory Rate 25 H 11/29/21 06:50 Blood Pressure 148/87 H 11/29/21 06:50 Pulse Oximetry 98 11/29/21 06:50 GENERAL: Alert 31-year-old male appears uncomfortable HEENT: Head atraumatic,EOMI, pupils reactive, face symmetric, moist mucous membranes CARDIOVASCULAR: Tachycardic regular RESPIRATORY: Breath sounds equal bilaterally, no wheezes rales or rhonchi. ABDOMEN: Soft, nontender. Normoactive bowel sounds all 4 quadrants. No guarding or rebound. EXTREMITIES: Normal range of motion, no clubbing or edema. Neurovascularly intact NEUROLOGICAL: Alert and oriented x4.Normal gait and speech. SKIN: Warm, dry, no laceration, no petechiae, no rashes or lesions. Course Orders Ordered: ED Orders 11/29/21 EKG-12 Lead Routine EKG-12 Lead Routine Discontinued Medications Diltiazem HCl (Diltiazem 5 Mg/Ml Sdv) 20 mg IV NOW ONE Stop: 11/29/21 06:49 Last Admin: 11/29/21 06:50 Dose: 20 mg Documented by: ALBERT Diltiazem HCl (Diltiazem 5 Mg/Ml Sdv) 10 mg IV NOW ONE Stop: 11/29/21 06:59 Metoprolol Succinate (Metoprolol Er 50 Mg Tablet) 50 mg PO NOW ONE Stop: 11/29/21 07:02 Last Admin: 11/29/21 07:25 Dose: 50 mg Documented by: Vital Signs Vital signs: Vital Signs - 8 hr 11/29/21 06:50 11/29/21 07:07 Temperature 97.3 F L Pulse Rate 190 H 83 Respiratory Rate 25 H 15 Blood Pressure 148/87 H 152/79 H Pulse Oximetry 98 95 MDM - Arrhythmia/Palpitations ECG Data Interpretation: EKG 1. SVT rate 200 EKG 2 normal sinus rhythm rate 90 p.r. interval 164 QRS [address] changes MDM Narrative Medical decision making narrative: Patient has frequent episodes of SVT this is similar to prior. Legs are significantly better after 3 days of Lasix. He has no shortness of breath or other symptoms. Overall feeling much better after he converted with Cardizem. He likely has frequent episodes his SVT because he is noncompliant with his metoprolol. He and I had a conversation about taking metoprolol as directed. At this time I see no indication for blood work or chest x-ray frequent episodes of SVT now resolved after Cardizem. Discharge Plan Departure Patient Disposition: Home Clinical Impression: Paroxysmal supraventricular tachycardia Instructions: DI for Paroxysmal Supraventricular Tachycardia Activity Restrictions/Additional Instructions: *You have been diagnosed with SVT *What to do: *Continue to take medications as directed Metoprolol 50 mg twice a day Hydrochlorothiazide 12.5 mg once a day *Follow up with your primary care provider in 2-3 days or call [phone] Follow-up with your energy conservation engineer Dr. Sullivan or Dr. Resendez *Return to ER if you should have increasing heart palpitations, shortness of breath, chest pain or any new, worsening or concerning symptoms Prescriptions: No Action hydrochlorothiazide 12.5 mg tablet 12.5 mg PO DAILY 0RF buspirone 7.5 mg tablet 7.5 mg PO BID Qty: 60 0RF metoprolol succinate 50 mg tablet extended release 24 hr 50 mg PO DAILY Qty: 30 1RF furosemide [Lasix] 20 mg tablet 20 mg PO QAM Qty: 3 0RF Referrals: Dennis Zhang MD [Primary Care Provider] -
[2021-11-29 07:07] VITALS: BP 152/79; PULSE 83; RESP 15; O2SAT 95
[2021-11-29] MEDS: METOPROLOL ER 50 MG TABLET PO (07:25)
[2021-11-29 07:30] VITALS: BP 146/82; PULSE 86; RESP 14; O2SAT 94
== END 2021-11-29 07:33 | disposition home or self-care (01) ==
PROVIDERS: Emergency Provider Emergency Medicine; PCP Student in an Organized Health Care Education/Training Program
DX: I47.1 Supraventricular tachycardia (principal)
CPT/HCPCS: 36415; 93005; 93010; 96374; 99284

== ENCOUNTER 2021-12-15 07:57 | Emergency (ER) | payer OTHER, MEDICAID, SELFPAY ==
--- NOTE | 2021-12-15 08:01 | ED_ITS ---
HPI - Chest Pain General Chief Complaint: Arrhythmia/Palpitations Stated Complaint: SVT Time Seen by Provider: 12/15/21 08:00 History of Present Illness HPI narrative: 31M daily smoker with extensive history of SVT and prior ablation, managed by Dr. Sullivan presents by EMS for evaluation of chest pain, shortness of breath and rapid heart rate. He states he has been taking his medications as directed and went to bed in her normal state of health, woke up this morning to urinate and had a sudden onset of symptoms that he is quite familiar with. We know him well and saw him recently under similar circumstances. EMS arrived and found his initial heart rate to be in SVT over 200, he was given Cardizem 20 mg which load him into the 170s, blood pressure was stable and symptoms improved somewhat, I asked that they give a 2nd dose of 30 mg which had converted him to a normal sinus rhythm by his arrival. He shows up in the mid 80s and is asymptomatic. He denies any change in medications, states he has been taking them as directed, denies any activities of behaviors outside of the normal over the course of the weekend. Related Data Home Medications Medication Instructions Recorded Confirmed hydrochlorothiazide 12.5 mg tablet 12.5 mg PO DAILY 06/30/21 08/31/21 Previous Rx's Medication Instructions Recorded buspirone 7.5 mg tablet 7.5 mg PO BID #60 tab 08/31/21 metoprolol succinate 50 mg 50 mg PO DAILY #30 tab 08/31/21 tablet,extended release 24 hr furosemide 20 mg tablet (Lasix) 20 mg PO QAM #3 tab 11/18/21 Allergies Allergy/AdvReac Type Severity Reaction Status Date / Time amoxicillin [AMOXICILLIN] Allergy Severe HIVES Verified 08/31/21 16:50 Penicillins [PENICILLINS] Allergy Severe Rash Verified 08/31/21 16:50 Review of Systems Review of Systems Narrative: GENERAL: Denies chills, fatigue, malaise, fever, sweats. HEENT: Denies sinus pain, ear pain, sore throat, difficulty swallowing, dizziness. RESPIRATORY: See HPI CARDIOVASCULAR: See HPI GASTROINTESTINAL: Denies nausea, vomiting, abdominal pain, diarrhea, constipat ion, melena. : Denies dysuria, frequency, incontinence, hematuria, urinary retention. MUSCULOSKELETAL: denies weakness, joint pain, or bony pain SKIN: Denies rash, skin lesions, or other NEUROLOGIC: Denies weakness, headache, numbness, change in speech, confusion, seizures, incoordination. PSYCHIATRIC: No concerning psychosocial issues. 12 point review of systems is negative except for those stated above Patient History Medical History Colitis Dysmetabolic syndrome Essential hypertension GERD (gastroesophageal reflux disease) (02/10/11) Heroin use disorder, moderate, in sustained remission Laceration of left index finger Methamphetamine abuse in remission Morbid obesity Observed sleep apnea PSVT (paroxysmal supraventricular tachycardia) Puncture wound Splenic infarct Social History Smoking Status: Current every day smoker Smoking Status: Current every day smoker tobacco type: cigarettes alcohol intake frequency: holidays/special occasions only Substance Use Type: opiates Exam Narrative Exam Narrative: GENERAL: [31] year old patient appears stated age. Well-developed patient, in mild distress. HEAD: Atraumatic. Normocephalic. EYES: Pupils equal round and reactive. Extraocular motions intact. No scleral icterus. No injection or drainage. ENT: Nose without bleeding, purulent drainage. Throat without erythema, tonsillar hypertrophy or exudate. Airway patent. NECK: Trachea midline. Non tender CARDIOVASCULAR: Regular rate and rhythm without murmurs, gallops, or rubs. RESPIRATORY: Clear to auscultation. Breath sounds equal bilaterally. No wheezes, rales, or rhonchi. GASTROINTESTINAL: Abdomen soft, non-tender, nondistended. EXTREMITIES: No edema or joint tenderness. BACK: Nontender without deformity or crepitance. No flank tenderness. NEURO: AOx3. SKIN: No rash or erythema of visible areas Initial Vital Signs Initial Vital Signs: Vital Signs Temperature 98.4 F 12/15/21 08:05 Pulse Rate 86 12/15/21 08:05 Respiratory Rate 18 12/15/21 08:05 Blood Pressure 159/90 H 12/15/21 08:05 Pulse Oximetry 95 12/15/21 08:05 Course Orders Ordered: ED Orders 12/15/21 08:00 EKG-12 Lead Stat 12/15/21 08:10 Basic Metabolic Panel Stat Complete Blood Count AUTO DIFF Stat Magnesium Stat NT-proBNP (BNP-Adult 18+) Stat Troponin & CK Cardiac Panel Stat Vital Signs Vital signs: Vital Signs - 8 hr 12/15/21 08:05 12/15/21 08:25 12/15/21 08:30 Temperature 98.4 F Pulse Rate 86 92 H 83 Respiratory Rate 18 19 17 Blood Pressure 159/90 H Pulse Oximetry 95 95 96 12/15/21 08:31 12/15/21 08:45 12/15/21 08:55 Temperature Pulse Rate 84 80 87 Respiratory Rate 16 19 Blood Pressure 145/71 H 138/89 Pulse Oximetry 93 96 96 MDM - Chest Pain Lab Data Result diagrams: 12/15/21 08:10 12/15/21 08:10 Labs: Lab Results 12/15/21 12/15/21 12/15/21 Range/Units 08:10 08:10 08:10 WBC 5.6 (4.5-11.0) X10^3/uL RBC 5.15 (4.5-5.9) X10^6/uL Hgb 14.5 (13.5-17.5) g/dL Hct 42.2 (41-53) % MCV 82.0 (80-100) fL MCH 28.2 (26-34) PG MCHC 34.3 (30-36) % RDW 13.6 (11.6-14.8) % Plt Count 185 (150-400) X10^3/uL Neut % (Auto) 56.5 (50-75) % Lymph % (Auto) 32.6 (25-40) % [place] % (Auto) 7.5 (3-14) % Eos % (Auto) 2.1 (2-4) % Baso % (Auto) 1.3 (0-2) % Neut # (Auto) 3200 (6332-5839) /uL Lymph # (Auto) 1800 (9466-4247) /uL [place] # (Auto) 400 (0-900) /uL Eos # (Auto) 100 (0-450) /uL Baso # (Auto) 100 (0-100) /uL Sodium 139 (137-145) mmol/L Potassium 4.0 (3.4-5.1) mmol/L Chloride 107 (98-107) mmol/L Carbon Dioxide 26 (22-32) mmol/L BUN 9 (9-20) mg/dL Creatinine 0.59 L (0.66-1.25) mg/dL Estimated GFR > 60 (>60) mL/min BUN/Creatinine Ratio 15.3 (6-22) Glucose 189 H (70-100) mg/dL Calcium 8.7 (8.4-10.2) mg/dL Magnesium 1.8 (1.6-2.3) mg/dL Total Creatine Kinase 82 (55-170) U/L CK-MB (CK-2) TNP CK-MB (CK-2) Rel Index TNP Troponin I < 0.012 (0.01-0.034) ng/mL NT-Pro-B Natriuret Pep 75 (<125) pg/mL MDM Narrative Medical decision making narrative: Patient with known, extensive history of SVT presents to EMS under similar circumstances, he is converted in or out using Cardizem. Over the duration of his visit he is completely asymptomatic and at baseline. He requested discharge prior to completion of labs for personal reasons. He intends to go home and call Cardiology soon as he gets home. He has been given return precautions and questions have been answered to his apparent satisfaction Discharge Plan Departure Patient Disposition: Home Clinical Impression: PSVT (paroxysmal supraventricular tachycardia) Instructions: DI for Paroxysmal Supraventricular Tachycardia Activity Restrictions/Additional Instructions: *You have been diagnosed with [SVT, resolved with Cardizem by EMS *What to do: *Please continue to take your regular medications as directed. [ ] New medication prescriptions sent to your pharmacy: [ ] [ ] New medication written as a paper prescription [ x] No new medications given *Please follow up with your primary care provider in 2-3 days, call for an appointment. Let them know you were seen in the Emergency Department and that we ask that you be seen in follow up. We will electronically transmit a record of today's note if your PCP is in our system *If you do not have a primary care provider please contact the [facility] Resource line at [phone]. They will ask some questions about your medical history and help get you set up with a doctor in the community. *Return to Emergency Department if you should have any new, worsening or concerning symptoms, such as [fever greater than 101 F, shaking chills, worsening pain, persistent vomiting or other bothersome symptoms] Prescriptions: No Action hydrochlorothiazide 12.5 mg tablet 12.5 mg PO DAILY 0RF buspirone 7.5 mg tablet 7.5 mg PO BID Qty: 60 0RF metoprolol succinate 50 mg tablet extended release 24 hr 50 mg PO DAILY Qty: 30 1RF furosemide [Lasix] 20 mg tablet 20 mg PO QAM Qty: 3 0RF Referrals: Dennis Zhang MD [Primary Care Provider] -
[2021-12-15 08:05] VITALS: BP 159/90; PULSE 86; RESP 18; TEMP 36.9; O2SAT 95; BMI 50.0
[2021-12-15 08:25] VITALS: PULSE 92; RESP 19; O2SAT 95
[2021-12-15 08:30] VITALS: PULSE 83; RESP 17; O2SAT 96
[2021-12-15 08:30] LABS: Add Manual Diff / Slide Review NO; Basophils Absolute Auto 100 /uL (0-100); Basophils Percent Auto 1.3 % (0-2); Eosinophils Absolute Auto 100 /uL (0-450); Eosinophils Percent Auto 2.1 % (2-4); Hematocrit 42.2 % (41-53); Hemoglobin 14.5 g/dL (13.5-17.5); Lymphocytes Absolute Auto 1800 /uL (1100-4500); Lymphocytes Percent Auto 32.6 % (25-40); Mean Corpuscular HGB Conc 34.3 % (30-36); Mean Corpuscular Hemoglobin 28.2 PG (26-34); Monocytes Absolute Auto 400 /uL (0-900); Monocytes Percent Auto 7.5 % (3-14); Neutrophils Absolute Auto 3200 /uL (1500-7000); Neutrophils Percent Auto 56.5 % (50-75); Platelet Count 185 X10^3/uL (150-400); Red Blood Cell Count 5.15 X10^6/uL (4.5-5.9); Red Cell Distribution Width 13.6 % (11.6-14.8); White Blood Cell Count 5.6 X10^3/uL (4.5-11.0)
[2021-12-15 08:31] VITALS: BP 145/71; PULSE 84; RESP 16; O2SAT 93
[2021-12-15 08:38] LABS: Creatine Kinase 82 U/L (55-170)
[2021-12-15 08:39] LABS: BUN Creatinine Ratio 15.3 (6-22); Blood Urea Nitrogen 9 mg/dL (9-20); Calcium 8.7 mg/dL (8.4-10.2); Carbon Dioxide 26 mmol/L (22-32); Chloride 107 mmol/L (98-107); Estimated Glomerular Filt Rate > 60 mL/min (>60); Glucose 189 mg/dL (70-100); HEMOLYSIS 21 (0-50); Magnesium 1.8 mg/dL (1.6-2.3); Sodium 139 mmol/L (137-145)
[2021-12-15 08:45] VITALS: PULSE 80; RESP 19; O2SAT 96
[2021-12-15 08:51] LABS: NT-proBNP (BNP-Adult 18+) 75 pg/mL (<125); Troponin I < 0.012 ng/mL (0.01-0.034)
[2021-12-15 08:55] VITALS: BP 138/89; PULSE 87; O2SAT 96
== END 2021-12-15 08:55 | disposition home or self-care (01) ==
PROVIDERS: Emergency Provider Emergency Medicine; PCP Student in an Organized Health Care Education/Training Program
DX: I47.1 Supraventricular tachycardia (principal); R06.02 Shortness of breath
CPT/HCPCS: 80048; 82550; 83735; 83880; 84484; 85025; 93005; 99281; 99283

== ENCOUNTER 2022-05-18 16:33 | Emergency (ER) | payer OTHER, MEDICAID, SELFPAY ==
[2022-05-18 16:38] VITALS: BP 133/87; PULSE 109; RESP 15; TEMP 36.6; O2SAT 97; BMI 47.5
== END 2022-05-18 17:57 | disposition left against medical advice (07) ==
PROVIDERS: Emergency Provider Family Medicine Addiction Medicine; PCP Student in an Organized Health Care Education/Training Program
DX: R00.2 Palpitations (principal)
CPT/HCPCS: 93005; 99281

== ENCOUNTER 2022-07-08 02:03 | Emergency (ER) | payer OTHER, MEDICAID, SELFPAY ==
[2022-07-08] VITALS (7 sets, daily range): BP systolic 127–135; BP diastolic 56–89; PULSE 98–188; RESP 12–24; TEMP 36.6; O2SAT 96–100
--- NOTE | 2022-07-08 02:09 | ED_ITS ---
HPI - General Adult General Chief complaint: Arrhythmia/Palpitations Stated complaint: A-fib Time Seen by Provider: 07/08/22 02:07 Source: patient Mode of arrival: EMS Limitations: no limitations History of Present Illness HPI narrative: Patient is a 32-year-old male with a history of paroxysmal ventricular tachycardic. He has had an ablation in the past. Has been here multiple times for symptoms. He has been cardioverted about also has converted with diltiazem. He states he was at home in his normal state of health. He is working in his garage. He sat down in a chair. States that his heart started to beat fast. EMS was called. He received 15 mg of Cardizem prior to arrival. This did improve his heart rate from greater than 200 to 170s. They did have a low blood pressure by EMS so no further Cardizem was administered. Here in the ER states that he is feeling somewhat better because his heart rate is improved but is still having quite a bit of discomfort. Related Data Home Medications Medication Instructions Recorded Confirmed diltiazem HCl 240 mg capsule,24 240 mg PO DAILY 02/25/22 hr,extended release flecainide 50 mg tablet 50 mg PO Q12H 02/25/22 hydrochlorothiazide 12.5 mg tablet 25 mg PO DAILY 02/25/22 Previous Rx's Medication Instructions Recorded buspirone 7.5 mg tablet 7.5 mg PO BID #60 tabs 08/31/21 metoprolol succinate 50 mg 50 mg PO DAILY #30 tabs 08/31/21 tablet,extended release 24 hr furosemide 20 mg tablet (Lasix) 20 mg PO QAM #3 tabs 11/18/21 cetirizine 10 mg tablet (Zyrtec) 10 mg PO DAILY PRN congestion #14 04/17/22 tabs hydrocodone 5 mg-acetaminophen 325 1 tab PO BID PRN pain #10 tabs 04/17/22 mg tablet omeprazole magnesium 20 mg 20 mg PO DAILY #20 tabs 04/17/22 tablet,delayed release (Prilosec OTC) Allergies Allergy/AdvReac Type Severity Reaction Status Date / Time amoxicillin [AMOXICILLIN] Allergy Severe HIVES Verified 05/18/22 16:43 Penicillins [PENICILLINS] Allergy Severe Rash Verified 05/18/22 16:43 Review of Systems Constitutional Constitutional: Reports system reviewed and no additional complaints, except as documented Cardiovascular Cardiovascular: Reports system reviewed and no additional complaints, except as documented Respiratory Respiratory: Reports system reviewed and no additional complaints, except as documented Hematologic/Lymphatic On Anticoagulants: No Patient History Medical History Acute otitis media Colitis Dysmetabolic syndrome Essential hypertension GERD (gastroesophageal reflux disease) (02/10/11) Heroin use disorder, moderate, in sustained remission Laceration of left index finger Methamphetamine abuse in remission Morbid obesity Observed sleep apnea PSVT (paroxysmal supraventricular tachycardia) Puncture wound Splenic infarct Social History Smoking Status: Current every day smoker Smoking Status: Current every day smoker tobacco type: cigarettes alcohol intake frequency: holidays/special occasions only Substance Use Type: former substance user Exam Initial Vital Signs Initial Vital Signs: Vital Signs Temperature 97.9 F 07/08/22 02:05 Pulse Rate 180 H 07/08/22 02:05 Respiratory Rate 24 07/08/22 02:05 Blood Pressure 135/89 07/08/22 02:05 Pulse Oximetry 100 07/08/22 02:05 Oxygen Delivery Method 07/08/22 02:05 HENMT Head: normal to inspection Resp Effort & Inspection: normal respiratory effort Auscultation: clear to auscultation bilaterally Cardio Rate: tachycardic Rhythm: regular rhythm Neuro General: patient alert, patient awake and moves all extremities Extrem General: No edema Course Orders Ordered: ED Orders 07/08/22 02:08 Basic Metabolic Panel Stat Complete Blood Count AUTO DIFF Stat Magnesium Stat EKG-12 Lead Stat 07/08/22 02:28 EKG-12 Lead Stat Sodium Chloride (Normal Saline 0.9%) 1,000 mls @ 125 mls/hr IV CONT KIP Discontinued Medications Diltiazem HCl (Diltiazem 5 Mg/Ml Sdv) 20 mg IV NOW ONE Stop: 07/08/22 02:08 Vital Signs Vital signs: Vital Signs - 8 hr 07/08/22 02:05 Temperature 97.9 F Pulse Rate 180 H Respiratory Rate 24 Blood Pressure 135/89 Pulse Oximetry 100 Oxygen Delivery Method Room Air Medical Decision Making ECG Data Interpretation: Initial EKG Supraventricular tachycardia Ventricular rate [address] T wave changes Post cardioversion EKG Sinus rhythm [address] T wave changes MDM Narrative Medical decision making narrative: Patient received 15 mg of diltiazem prior to arrival. His heart rate did improve with this. He was not hypotensive. He received another 20 mg of diltiazem and this converted him back to sinus rhythm. States that all of his symptoms have completely resolved. He states he would like to go home. No indication for lab studies. Will discharge patient home with return instructions. He expressed understanding and agreement. Discharge Plan Departure Patient Disposition: Home Clinical Impression: PSVT (paroxysmal supraventricular tachycardia) Instructions: DI for Paroxysmal Supraventricular Tachycardia Activity Restrictions/Additional Instructions: Recommend that you continue to take all of your medications as directed. 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 Return to the emergency department for any new or worsening symptoms. Prescriptions: No Action cetirizine [Zyrtec] 10 mg tablet 10 mg PO DAILY PRN (Reason: congestion) Qty: 14 0RF omeprazole magnesium [Prilosec OTC] 20 mg tablet,delayed release (DR/EC) 20 mg PO DAILY Qty: 20 0RF hydrocodone-acetaminophen 5-325 mg tablet 1 tab PO BID PRN (Reason: pain) Qty: 10 0RF hydrochlorothiazide 12.5 mg tablet 25 mg PO DAILY diltiazem HCl 240 mg capsule,extended release 24 hr 240 mg PO DAILY flecainide 50 mg tablet 50 mg PO Q12H buspirone 7.5 mg tablet 7.5 mg PO BID Qty: 60 0RF metoprolol succinate 50 mg tablet extended release 24 hr 50 mg PO DAILY Qty: 30 1RF furosemide [Lasix] 20 mg tablet 20 mg PO QAM Qty: 3 0RF Referrals: Dennis Zhang MD [Primary Care Provider] -
[2022-07-08] MEDS: dilTIAZem 5 MG/ML SDV 20 MG IV (02:34)
== END 2022-07-08 02:30 | disposition home or self-care (01) ==
PROVIDERS: Emergency Provider Emergency Medicine; PCP Student in an Organized Health Care Education/Training Program
DX: I47.1 Supraventricular tachycardia (principal)
CPT/HCPCS: 93005; 96374; 99284

== ENCOUNTER 2023-08-06 01:31 | Emergency (ER) | payer OTHER, MEDICAID, SELFPAY ==
[2023-08-06] VITALS (7 sets, daily range): BP systolic 131–138; BP diastolic 70–98; PULSE 92–230; RESP 15–22; TEMP 36.6; O2SAT 94–100; BMI 50.0
--- NOTE | 2023-08-06 01:39 | ED.ARRPALP ---
HPI - Arrhythmia/Palpitations General Chief Complaint: Arrhythmia/Palpitations Stated Complaint: Afib Time Seen by Provider: 08/06/23 01:33 Source: patient Mode of arrival: Ambulatory Limitations: no limitations History of Present Illness HPI narrative: Patient is a 33-year-old male. Has a history of AFib/SVT. Is on medications for this. States that he occasionally has episodes where his heart rate is going fast. He came in tonight as he woke up from sleep with his heart rate going fast. Is having chest discomfort. He thinks that it is either his sleep apnea or potentially that he has not been on his metformin and maybe his blood sugar has been out of control. He states that when this has happened in the past diltiazem works very well for him. Related Data Home Medications Medication Instructions Recorded Confirmed diltiazem HCl 240 mg capsule,24 240 mg PO DAILY 02/25/22 hr,extended release flecainide 50 mg tablet 50 mg PO Q12H 02/25/22 hydrochlorothiazide 12.5 mg tablet 25 mg PO DAILY 02/25/22 Previous Rx's Medication Instructions Recorded buspirone 7.5 mg tablet 7.5 mg PO BID #60 tabs 08/31/21 metoprolol succinate 50 mg 50 mg PO DAILY #30 tabs 08/31/21 tablet,extended release 24 hr furosemide 20 mg tablet (Lasix) 20 mg PO QAM #3 tabs 11/18/21 cetirizine 10 mg tablet (Zyrtec) 10 mg PO DAILY PRN congestion #14 04/17/22 tabs hydrocodone 5 mg-acetaminophen 325 1 tab PO BID PRN pain #10 tabs 04/17/22 mg tablet omeprazole magnesium 20 mg 20 mg PO DAILY #20 tabs 04/17/22 tablet,delayed release (Prilosec OTC) metformin 500 mg tablet 1,000 mg (2 x 500 mg) PO BID #90 08/06/23 tabs Allergies Allergy/AdvReac Type Severity Reaction Status Date / Time amoxicillin [AMOXICILLIN] Allergy Severe HIVES Verified 05/18/22 16:43 Penicillins [PENICILLINS] Allergy Severe Rash Verified 05/18/22 16:43 Review of Systems Constitutional Constitutional: Reports system reviewed and no additional complaints, except as documented Cardiovascular Cardiovascular: Reports system reviewed and no additional complaints, except as documented Respiratory Respiratory: Reports system reviewed and no additional complaints, except as documented Gastrointestinal Gastrointestinal: Reports system reviewed and no additional complaints, except as documented Integumentary/Breasts Skin/Breast: Reports system reviewed and no additional complaints, except as documented Neurologic Neurologic: Reports system reviewed and no additional complaints, except as documented Patient History Medical History Acute otitis media PSVT (paroxysmal supraventricular tachycardia) GERD (gastroesophageal reflux disease) (02/10/11) Dysmetabolic syndrome Essential hypertension Heroin use disorder, moderate, in sustained remission Methamphetamine abuse in remission Observed sleep apnea Morbid obesity Splenic infarct Colitis Laceration of left index finger Puncture wound Social History Smoking Status: Current every day smoker Smoking Status: Current every day smoker tobacco type: cigarettes alcohol intake frequency: holidays/special occasions only Substance Use Type: former substance user Exam Initial Vital Signs Initial Vital Signs: Vital Signs Pulse Rate 229 H 08/06/23 01:34 Respiratory Rate 22 08/06/23 01:34 Pulse Oximetry 99 08/06/23 01:34 HENMT Head: normal to inspection Resp Effort & Inspection: normal respiratory effort Auscultation: clear to auscultation bilaterally Cardio Rate: tachycardic Rhythm: regular rhythm GI Inspection: normal to inspection Neuro General: patient alert, patient awake and moves all extremities Extrem General: No edema Course Orders Ordered: ED Orders 08/06/23 01:34 EKG-12 Lead Stat 08/06/23 01:42 EKG-12 Lead Stat 08/06/23 01:45 Complete Blood Count AUTO DIFF Stat Comprehensive Metabolic Panel Stat Magnesium Stat Discontinued Medications Diltiazem HCl (Diltiazem 5 Mg/Ml Sdv) 20 mg IV NOW ONE Stop: 08/06/23 01:37 Last Admin: 08/06/23 01:43 Dose: 20 mg Documented By: MARIELLA Metformin HCl (Metformin Hcl 500 Mg Tablet) 1,000 mg PO NOW ONE Stop: 08/06/23 02:19 Vital Signs Vital signs: Vital Signs - 8 hr 08/06/23 01:34 08/06/23 01:37 08/06/23 01:37 Temperature Pulse Rate 229 H 222 H Respiratory Rate 22 22 Blood Pressure 132/98 H Pulse Oximetry 99 100 Oxygen Delivery Method 08/06/23 01:38 08/06/23 01:43 08/06/23 01:45 Temperature 97.9 F Pulse Rate 211 H 230 H Respiratory Rate 16 Blood Pressure 132/98 H 136/92 H Pulse Oximetry 98 Oxygen Delivery Method Room Air 08/06/23 01:45 Temperature Pulse Rate 102 H Respiratory Rate 17 Blood Pressure Pulse Oximetry 94 Oxygen Delivery Method MDM - Arrhythmia/Palpitations Medical Records Attestation: I reviewed the patient's medical records. Lab Data Attestation: I reviewed the patient's lab results. 08/06/23 01:45 08/06/23 01:45 Labs: Lab Results 08/06/23 Range/Units 01:45 WBC 13.3 H (4.5-11.0) X10^3/uL RBC 5.91 H (4.5-5.9) X10^6/uL Hgb 17.3 (13.5-17.5) g/dL Hct 50.6 (41-53) % MCV 85.6 (80-100) fL MCH 29.2 (26-34) PG MCHC 34.1 (30-36) % RDW 14.0 (11.6-14.8) % Plt Count 281 (150-400) X10^3/uL Neut % (Auto) 51.3 (50-75) % Lymph % (Auto) 40.6 H (25-40) % [place] % (Auto) 6.7 (3-14) % Eos % (Auto) 1.1 L (2-4) % Baso % (Auto) 0.3 (0-2) % Neut # (Auto) 6800 (0900-7327) /uL Lymph # (Auto) 5400 H (5477-7663) /uL [place] # (Auto) 900 (0-900) /uL Eos # (Auto) 200 (0-450) /uL Baso # (Auto) 0 (0-100) /uL Sodium 134 L (137-145) mmol/L Potassium 3.3 L (3.4-5.1) mmol/L Chloride 94 L (98-107) mmol/L Carbon Dioxide 25 (22-32) mmol/L BUN 10 (9-20) mg/dL Creatinine 0.66 (0.66-1.25) mg/dL Estimated GFR > 60 (>60) mL/min BUN/Creatinine Ratio 15.2 (6-22) Glucose 410 H (70-100) mg/dL Calcium 9.1 (8.4-10.2) mg/dL Magnesium 1.8 (1.6-2.3) mg/dL Total Bilirubin 0.7 (0.2-1.3) mg/dL AST 76 H (17-59) IU/L ALT 90 H (<50) IU/L Alkaline Phosphatase 148 H (38-126) U/L Total Protein 7.6 (6.3-8.2) g/dL Albumin 4.4 (3.5-5.0) g/dL Globulin 3.2 (1.7-4.1) g/dL Albumin/Globulin Ratio 1.4 (1.0-2.8) ECG Data Attestation: I personally reviewed and interpreted this ECG as follows: Interpretation: Presentation EKG Narrow complex tachycardia with a ventricular rate of 225 Left axis deviation Nonspecific ST T wave changes Post diltiazem EKG Sinus tachycardia Ventricular rate of 110 Normal axis Normal QRS No ST T wave changes MDM Narrative Medical decision making narrative: Patient arrived with a heart rate in the 230 range. He was given 20 mg of diltiazem and very quickly afterwards heart rate improved to a sinus rhythm with a rate of 95. He states he feels much better. He is hyperglycemic but not in DKA. He has not been on his metformin. He states that even when he is on his metformin his blood sugars are in the 300 range. Plan will be is to increase his metformin to 1000 mg twice a day. He was given a dose here in the ER. Advised that he contact his primary doctor for a follow-up. He expressed understanding and agreement. Discharge Plan Departure Patient Disposition: Home Clinical Impression: Supraventricular tachycardia, Hyperglycemia Instructions: Paroxysmal Supraventricular Tachycardia, DI for Hyperglycemia -- Adult Activity Restrictions/Additional Instructions: Continue to take all of your medications as directed except increase your metformin from 500 mg twice a day to 1000 mg twice a day. I also advised that you contact your primary care provider for a follow-up. Return to the emergency department for new symptoms. Prescriptions: New metformin 500 mg tablet 1,000 mg PO BID Qty: 90 2RF No Action cetirizine [Zyrtec] 10 mg tablet 10 mg PO DAILY PRN (Reason: congestion) Qty: 14 0RF omeprazole magnesium [Prilosec OTC] 20 mg tablet,delayed release (DR/EC) 20 mg PO DAILY Qty: 20 0RF hydrocodone-acetaminophen 5-325 mg tablet 1 tab PO BID PRN (Reason: pain) Qty: 10 0RF hydrochlorothiazide 12.5 mg tablet 25 mg PO DAILY diltiazem HCl 240 mg capsule,extended release 24 hr 240 mg PO DAILY flecainide 50 mg tablet 50 mg PO Q12H buspirone 7.5 mg tablet 7.5 mg PO BID Qty: 60 0RF metoprolol succinate 50 mg tablet extended release 24 hr 50 mg PO DAILY Qty: 30 1RF furosemide [Lasix] 20 mg tablet 20 mg PO QAM Qty: 3 0RF Referrals: Dennis Zhang MD [Primary Care Provider] - Stand Alone Forms: Patient Portal/API
[2023-08-06] MEDS: dilTIAZem 5 MG/ML SDV 20 MG IV (01:43)
[2023-08-06 02:05] LABS: Add Manual Diff / Slide Review NO; Basophils Absolute Auto 0 /uL (0-100); Basophils Percent Auto 0.3 % (0-2); Eosinophils Absolute Auto 200 /uL (0-450); Eosinophils Percent Auto 1.1 % (2-4); Hematocrit 50.6 % (41-53); Hemoglobin 17.3 g/dL (13.5-17.5); Lymphocytes Absolute Auto 5400 /uL (1100-4500); Lymphocytes Percent Auto 40.6 % (25-40); Mean Corpuscular HGB Conc 34.1 % (30-36); Mean Corpuscular Hemoglobin 29.2 PG (26-34); Mean Corpuscular Volume 85.6 fL (80-100); Monocytes Absolute Auto 900 /uL (0-900); Monocytes Percent Auto 6.7 % (3-14); Neutrophils Absolute Auto 6800 /uL (1500-7000); Neutrophils Percent Auto 51.3 % (50-75); Platelet Count 281 X10^3/uL (150-400); Red Blood Cell Count 5.91 X10^6/uL (4.5-5.9); White Blood Cell Count 13.3 X10^3/uL (4.5-11.0)
[2023-08-06 02:08] LABS: Alanine Aminotransferase 90 IU/L (<50); Albumin 4.4 g/dL (3.5-5.0); Albumin Globulin Ratio 1.4 (1.0-2.8); Alkaline Phosphatase 148 U/L (38-126); Aspartate Aminotransferase 76 IU/L (17-59); BUN Creatinine Ratio 15.2 (6-22); Bilirubin Total 0.7 mg/dL (0.2-1.3); Blood Urea Nitrogen 10 mg/dL (9-20); Calcium 9.1 mg/dL (8.4-10.2); Carbon Dioxide 25 mmol/L (22-32); Chloride 94 mmol/L (98-107); Estimated Glomerular Filt Rate > 60 mL/min (>60); Globulin 3.2 g/dL (1.7-4.1); Glucose 410 mg/dL (70-100); Magnesium 1.8 mg/dL (1.6-2.3); Sodium 134 mmol/L (137-145); Total Protein 7.6 g/dL (6.3-8.2)
[2023-08-06 02:09] LABS: HEMOLYSIS 53 (0-50)
[2023-08-06 02:11] LABS: Potassium 3.3 mmol/L (3.4-5.1)
[2023-08-06] MEDS: METFORMIN HCL 500 MG TABLET 1000 MG PO (02:35)
== END 2023-08-06 02:37 | disposition home or self-care (01) ==
PROVIDERS: Emergency Provider Emergency Medicine; PCP Student in an Organized Health Care Education/Training Program
DX: I47.10 Supraventricular tachycardia, unspecified (principal); R73.9 Hyperglycemia, unspecified
CPT/HCPCS: 36415; 80053; 83735; 85025; 93005; 93010; 96374; 99284

== ENCOUNTER 2023-08-06 07:01 | Emergency (ER) | payer OTHER, MEDICAID, SELFPAY ==
[2023-08-06] VITALS (7 sets, daily range): BP systolic 122–161; BP diastolic 58–104; PULSE 98–210; RESP 10–21; TEMP 36.4; O2SAT 93–99; BMI 43.7
--- NOTE | 2023-08-06 07:10 | ED_ITS ---
HPI - Arrhythmia/Palpitations General Chief Complaint: Chest Pain Stated Complaint: Afib Time Seen by Provider: 08/06/23 07:02 Source: patient Mode of arrival: Ambulatory History of Present Illness HPI narrative: 33-year-old male with history of SVT on diltiazem and flecainide, [id number] diabetes presents by private vehicle from home for elevated heart rate. Patient is seen less than 12 hours ago for same presentation, he received IV diltiazem with resolution of his SVT. He states that his SVT started acting up again, which it normally does not do. Presented to triage with heart rate 200 beats per minute. Patient reports chest pressure, which he states resolves when his heart rate is controlled Related Data Home Medications Medication Instructions Recorded Confirmed diltiazem HCl 240 mg capsule,24 240 mg PO DAILY 02/25/22 hr,extended release flecainide 50 mg tablet 50 mg PO Q12H 02/25/22 hydrochlorothiazide 12.5 mg tablet 25 mg PO DAILY 02/25/22 Previous Rx's Medication Instructions Recorded buspirone 7.5 mg tablet 7.5 mg PO BID #60 tabs 08/31/21 metoprolol succinate 50 mg 50 mg PO DAILY #30 tabs 08/31/21 tablet,extended release 24 hr furosemide 20 mg tablet (Lasix) 20 mg PO QAM #3 tabs 11/18/21 cetirizine 10 mg tablet (Zyrtec) 10 mg PO DAILY PRN congestion #14 04/17/22 tabs hydrocodone 5 mg-acetaminophen 325 1 tab PO BID PRN pain #10 tabs 04/17/22 mg tablet omeprazole magnesium 20 mg 20 mg PO DAILY #20 tabs 04/17/22 tablet,delayed release (Prilosec OTC) metformin 500 mg tablet 1,000 mg (2 x 500 mg) PO BID #90 08/06/23 tabs Allergies Allergy/AdvReac Type Severity Reaction Status Date / Time amoxicillin [AMOXICILLIN] Allergy Severe HIVES Verified 08/06/23 07:09 Penicillins [PENICILLINS] Allergy Severe Rash Verified 08/06/23 07:09 Review of Systems Review of Systems Narrative: Negative except as noted above Patient History Medical History Acute otitis media PSVT (paroxysmal supraventricular tachycardia) GERD (gastroesophageal reflux disease) (02/10/11) Dysmetabolic syndrome Essential hypertension Heroin use disorder, moderate, in sustained remission Methamphetamine abuse in remission Observed sleep apnea Morbid obesity Splenic infarct Colitis Laceration of left index finger Puncture wound Social History Smoking Status: Current every day smoker Smoking Status: Current every day smoker tobacco type: cigarettes alcohol intake frequency: holidays/special occasions only Substance Use Type: former substance user Exam Initial Vital Signs Initial Vital Signs: Vital Signs Temperature 97.6 F 08/06/23 07:05 Pulse Rate 210 H 08/06/23 07:05 Respiratory Rate 19 08/06/23 07:05 Blood Pressure 135/93 H 08/06/23 07:05 Pulse Oximetry 99 08/06/23 07:05 Oxygen Delivery Method Room Air 08/06/23 07:05 Const: Awake, alert, morbidly obese, appears chronically unwell Cardiac: r tachycardia, regular rhythm RESP: unlabored, clear bilaterally, no wheezing GI: Atraumatic, soft Skin: Warm, Dry, intact, no rashes Neuro: AO x3, CN II-XII grossly intact, moves all extremities Psych: Appropriate for condition Course Orders Ordered: Discontinued Medications Diltiazem HCl (Diltiazem 5 Mg/Ml Sdv) 20 mg IV NOW ONE Stop: 08/06/23 07:06 Last Admin: 08/06/23 07:11 Dose: 20 mg Documented By: RB Sodium Chloride (Normal Saline 0.9%) 1,000 mls @ 1,000 mls/hr IV BOLUS ONE Stop: 08/06/23 08:16 Last Admin: 08/06/23 08:07 Dose: Not Given Documented By: RB Propofol (Propofol 200 Mg/20 Ml Vial) 160 mg 1 mg/kg (160 mg) IV NOW ONE Stop: 08/06/23 07:17 Last Admin: 08/06/23 08:07 Dose: Not Given Documented By: RB Vital Signs Vital signs: Vital Signs - 8 hr 08/06/23 07:05 08/06/23 07:11 08/06/23 07:11 Temperature 97.6 F Pulse Rate 210 H 210 H 203 H Respiratory Rate 19 Blood Pressure 135/93 H 135/93 H Pulse Oximetry 99 99 Oxygen Delivery Method Room Air 08/06/23 07:12 08/06/23 07:12 Temperature Pulse Rate 179 H Respiratory Rate 21 Blood Pressure 122/58 L Pulse Oximetry 98 Oxygen Delivery Method MDM - Arrhythmia/Palpitations Differential Diagnosis Differential diagnosis: Likely palpitations, sinus tachycardia, artial flutter and supraventricular tachycardia ECG Data Interpretation: EKG 1: Supraventricular tachycardia at a rate of 200 beats per minute. Nonspeci fic ST T wave changes, no STEMI EKG 2: Normal sinus rhythm, 100 beats per minute. Normal NM, no ST T wave changes, no STEMI MDM Narrative Medical decision making narrative: Patient presenting with repeat episode of supraventricular tachycardia. He is in some distress stating that his chest is bothering him and causing him significant pain. Patient received 20 mg of IV diltiazem, and initially it did not seem as though it controlled his heart rate. Patient requested that we shocked him and not try another round of medications, however before medications could be administered patient converted to normal sinus rhythm at 100 beats per minute. Patient was observed for short time, however he requested to leave. He stated that his had to go to work and he felt much better. He states that this is a condition he is very familiar with and will return if his condition recurs. Critical Care Time Critical Care Time Critical Care Time: Yes Total Critical Care Time: 31 Attestation: SVT requiring emergent cardioversion Discharge Plan Departure Patient Disposition: Home Clinical Impression: PSVT (paroxysmal supraventricular tachycardia) Instructions: DI for Arrhythmias Prescriptions: No Action cetirizine [Zyrtec] 10 mg tablet 10 mg PO DAILY PRN (Reason: congestion) Qty: 14 0RF omeprazole magnesium [Prilosec OTC] 20 mg tablet,delayed release (DR/EC) 20 mg PO DAILY Qty: 20 0RF hydrocodone-acetaminophen 5-325 mg tablet 1 tab PO BID PRN (Reason: pain) Qty: 10 0RF hydrochlorothiazide 12.5 mg tablet 25 mg PO DAILY diltiazem HCl 240 mg capsule,extended release 24 hr 240 mg PO DAILY flecainide 50 mg tablet 50 mg PO Q12H buspirone 7.5 mg tablet 7.5 mg PO BID Qty: 60 0RF metoprolol succinate 50 mg tablet extended release 24 hr 50 mg PO DAILY Qty: 30 1RF furosemide [Lasix] 20 mg tablet 20 mg PO QAM Qty: 3 0RF metformin 500 mg tablet 1,000 mg PO BID Qty: 90 2RF Referrals: Dennis Zhang MD [Primary Care Provider] - Stand Alone Forms: Patient Portal/API
[2023-08-06] MEDS: dilTIAZem 5 MG/ML SDV 20 MG IV (07:11)
--- NOTE | 2023-08-06 07:20 | PC.NURSE ---
Patient ryththm has decreased and converted after Cardizem administration. Provider notified and new EKG performed shows patient in sinus tachycardia at a rate of 101.
== END 2023-08-06 08:06 | disposition home or self-care (01) ==
PROVIDERS: Emergency Provider Emergency Medicine; PCP Student in an Organized Health Care Education/Training Program
DX: I47.10 Supraventricular tachycardia, unspecified (principal)
CPT/HCPCS: 36415; 93005; 99284

== ENCOUNTER 2023-12-30 15:08 | Emergency (ER) | payer OTHER, MEDICAID, SELFPAY ==
[2023-12-30 15:11] VITALS: BP 133/78; PULSE 94; PULSE 97; RESP 17; TEMP 36.4; O2SAT 96; O2SAT 98; BMI 45.0
[2023-12-30 15:12] VITALS: BP 133/78; PULSE 97; O2SAT 96
--- NOTE | 2023-12-30 15:19 | PC.NURSE ---
patient has a history of Afib. He called out form work today, ate two candy bars and drink a soda and then woke up in AFIB. He states that he has a RX for diltiazem but does not take it because is makes his heart palpitate. He is also diabetic but does not take metformin anymore since it did not change his BG. He also has sleep apnea.
[2023-12-30 15:30] VITALS: BP 122/66; PULSE 94; RESP 23; O2SAT 95
--- NOTE | 2023-12-30 15:45 | ED.ARRPALP ---
HPI - Arrhythmia/Palpitations General Chief Complaint: Arrhythmia/Palpitations Stated Complaint: Afib Time Seen by Provider: 12/30/23 15:14 Source: patient and EMS Mode of arrival: EMS History of Present Illness HPI narrative: 33-year-old male with history of paroxysmal supraventricular tachycardia presents by EMS from home for palpitations. Patient has been seen in the ER several times for this complaint, he was noncompliant with any of his medications because he states he feels worse when taking them. Patient states that he ate to candy bars and drank a soda before taking a nap. When he woke up from his nap he had tachycardia. EMS administered IV diltiazem EN route. Patient states he feels better, he was not want any additional workup at this time, and wants to go home. Related Data Home Medications Medication Instructions Recorded Confirmed diltiazem HCl 240 mg capsule,24 240 mg PO DAILY 02/25/22 hr,extended release flecainide 50 mg tablet 50 mg PO Q12H 02/25/22 hydrochlorothiazide 12.5 mg tablet 25 mg PO DAILY 02/25/22 Previous Rx's Medication Instructions Recorded buspirone 7.5 mg tablet 7.5 mg PO BID #60 tabs 08/31/21 metoprolol succinate 50 mg 50 mg PO DAILY #30 tabs 08/31/21 tablet,extended release 24 hr furosemide 20 mg tablet (Lasix) 20 mg PO QAM #3 tabs 11/18/21 cetirizine 10 mg tablet (Zyrtec) 10 mg PO DAILY PRN congestion #14 04/17/22 tabs hydrocodone 5 mg-acetaminophen 325 1 tab PO BID PRN pain #10 tabs 04/17/22 mg tablet omeprazole magnesium 20 mg 20 mg PO DAILY #20 tabs 04/17/22 tablet,delayed release (Prilosec OTC) metformin 500 mg tablet 1,000 mg (2 x 500 mg) PO BID #90 08/06/23 tabs Allergies Allergy/AdvReac Type Severity Reaction Status Date / Time amoxicillin [AMOXICILLIN] Allergy Severe HIVES Verified 08/06/23 07:09 Penicillins [PENICILLINS] Allergy Severe Rash Verified 08/06/23 07:09 Patient History Medical History Acute otitis media PSVT (paroxysmal supraventricular tachycardia) GERD (gastroesophageal reflux disease) (02/10/11) Dysmetabolic syndrome Essential hypertension Heroin use disorder, moderate, in sustained remission Methamphetamine abuse in remission Observed sleep apnea Morbid obesity Splenic infarct Colitis Laceration of left index finger Puncture wound Social History Smoking Status: Former smoker Smoking Status: Former smoker tobacco type: cigarettes alcohol intake frequency: holidays/special occasions only Substance Use Type: marijuana Exam Initial Vital Signs Initial Vital Signs: Vital Signs Temperature 97.6 F 12/30/23 15:11 Pulse Rate 97 H 12/30/23 15:11 Respiratory Rate 17 12/30/23 15:11 Blood Pressure 133/78 12/30/23 15:11 Pulse Oximetry 98 12/30/23 15:11 Oxygen Delivery Method Room Air 12/30/23 15:11 Const: Awake, alert, no acute distress, nontoxic appearing Cardiac: regular rate, regular rhythm RESP: unlabored, clear bilaterally, no wheezing Skin: Warm, Dry, intact, no rashes Neuro: AO x3, CN II-XII grossly intact, moves all extremities Course Vital Signs Vital signs: Vital Signs - 8 hr 12/30/23 15:11 12/30/23 15:11 12/30/23 15:12 Temperature 97.6 F Pulse Rate 97 H 94 H 97 H Respiratory Rate 17 Blood Pressure 133/78 Pulse Oximetry 98 96 96 Oxygen Delivery Method Room Air 12/30/23 15:12 12/30/23 15:30 12/30/23 15:30 Temperature Pulse Rate 94 H Respiratory Rate 23 Blood Pressure 133/78 122/66 Pulse Oximetry 95 Oxygen Delivery Method MDM - Arrhythmia/Palpitations Differential Diagnosis Differential diagnosis: Likely palpitations, anxiety and sinus tachycardia MDM Narrative Medical decision making narrative: Patient called 911 for elevated heart rate at home. He states that after receiving the IV medication from paramedics he feels better. He states that this is a well-known condition to him and he does not want any additional treatment or workup at this time. He requested a note for work so that he can recover at home. Patient was advised on the importance of taking his blood pressure and diabetic medications to prevent complications such as stroke or heart attack Discharge Plan Departure Patient Disposition: Home Clinical Impression: Sinus tachycardia Instructions: DI for Paroxysmal Supraventricular Tachycardia Activity Restrictions/Additional Instructions: I recommend establishing care with a new primary care doctor. It was important to get your sugars under control so that you do not have more heart episodes. Prescriptions: No Action cetirizine [Zyrtec] 10 mg tablet 10 mg PO DAILY PRN (Reason: congestion) Qty: 14 0RF omeprazole magnesium [Prilosec OTC] 20 mg tablet,delayed release (DR/EC) 20 mg PO DAILY Qty: 20 0RF hydrocodone-acetaminophen 5-325 mg tablet 1 tab PO BID PRN (Reason: pain) Qty: 10 0RF hydrochlorothiazide 12.5 mg tablet 25 mg PO DAILY diltiazem HCl 240 mg capsule,extended release 24 hr 240 mg PO DAILY flecainide 50 mg tablet 50 mg PO Q12H buspirone 7.5 mg tablet 7.5 mg PO BID Qty: 60 0RF metoprolol succinate 50 mg tablet extended release 24 hr 50 mg PO DAILY Qty: 30 1RF furosemide [Lasix] 20 mg tablet 20 mg PO QAM Qty: 3 0RF metformin 500 mg tablet 1,000 mg PO BID Qty: 90 2RF Referrals: Dennis Zhang MD [Primary Care Provider] - Stand Alone Forms: Patient Portal/API, Work Release Note
[2023-12-30 15:55] VITALS: BP 122/66; PULSE 91; RESP 23; O2SAT 96
== END 2023-12-30 15:58 | disposition home or self-care (01) ==
PROVIDERS: Emergency Provider Emergency Medicine; PCP Student in an Organized Health Care Education/Training Program
DX: R00.0 Tachycardia, unspecified (principal)
CPT/HCPCS: 99281

== ENCOUNTER 2024-02-01 06:35 | Emergency (ER) | payer OTHER, MEDICAID, SELFPAY ==
[2024-02-01 06:47] VITALS: BP 141/88; PULSE 79; RESP 16; TEMP 36.6; O2SAT 97; BMI 45.0
--- NOTE | 2024-02-01 06:51 | ED_ITS ---
HPI - General Adult General Chief complaint: Extremity Injury, Lower Stated complaint: lt foot pain, unable to walk Time Seen by Provider: 02/01/24 06:51 Source: patient Mode of arrival: Ambulatory History of Present Illness HPI narrative: 34-year-old gentleman with a history of paroxysmal SVT, reflux, diabetes presents with severe right foot pain. He has been getting progressively worse over the last number of months. He awoke this morning and when the 1st step of the day, which is always the worst amount of pain, he found that he was unable to walk at all comes in for further evaluation. He does not believing go to work which is significantly distressing for him. He has taken some ibuprofen and finds it only minimally helpful. There was no specific trauma, no infection no foreign body no other concerns or complaints at this time Related Data Home Medications Medication Instructions Recorded Confirmed diltiazem HCl 240 mg capsule,24 240 mg PO DAILY 02/25/22 hr,extended release flecainide 50 mg tablet 50 mg PO Q12H 02/25/22 hydrochlorothiazide 12.5 mg tablet 25 mg PO DAILY 02/25/22 Previous Rx's Medication Instructions Recorded buspirone 7.5 mg tablet 7.5 mg PO BID #60 tabs 08/31/21 metoprolol succinate 50 mg 50 mg PO DAILY #30 tabs 08/31/21 tablet,extended release 24 hr furosemide 20 mg tablet (Lasix) 20 mg PO QAM #3 tabs 11/18/21 cetirizine 10 mg tablet (Zyrtec) 10 mg PO DAILY PRN congestion #14 04/17/22 tabs hydrocodone 5 mg-acetaminophen 325 1 tab PO BID PRN pain #10 tabs 04/17/22 mg tablet omeprazole magnesium 20 mg 20 mg PO DAILY #20 tabs 04/17/22 tablet,delayed release (Prilosec OTC) metformin 500 mg tablet 1,000 mg (2 x 500 mg) PO BID #90 08/06/23 tabs naproxen 500 mg tablet,delayed 500 mg PO BID #60 tabs 02/01/24 release Allergies Allergy/AdvReac Type Severity Reaction Status Date / Time amoxicillin [AMOXICILLIN] Allergy Severe HIVES Verified 08/06/23 07:09 Penicillins [PENICILLINS] Allergy Severe Rash Verified 08/06/23 07:09 Review of Systems Review of Systems Narrative: Pertinent positive and negative findings as per HPI Patient History Medical History Acute otitis media PSVT (paroxysmal supraventricular tachycardia) GERD (gastroesophageal reflux disease) (02/10/11) Dysmetabolic syndrome Essential hypertension Heroin use disorder, moderate, in sustained remission Methamphetamine abuse in remission Observed sleep apnea Morbid obesity Splenic infarct Colitis Laceration of left index finger Puncture wound Social History Smoking Status: Current every day smoker Smoking Status: Current every day smoker tobacco type: cigarettes alcohol intake frequency: holidays/special occasions only Substance Use Type: marijuana Exam Initial Vital Signs Initial Vital Signs: Vital Signs Temperature 97.8 F 02/01/24 06:47 Pulse Rate 79 02/01/24 06:47 Respiratory Rate 16 02/01/24 06:47 Blood Pressure 141/88 H 02/01/24 06:47 Pulse Oximetry 97 02/01/24 06:47 Oxygen Delivery Method Room Air 02/01/24 06:47 General: Alert appropriate in no acute distress Respiratory: Able to speak in full sentences, no obvious respiratory distress Skin: Tinea pedis of both feet, no other rashes appreciated Extremity: Right foot is examined. Tinea pedis as mentioned but no infection, swelling, discoloration. He has exquisite point tenderness over bottom of the heel, plantar insertion site over the calcaneus. There was no joint pain or abnormality Course Vital Signs Vital signs: Vital Signs - 8 hr 02/01/24 06:47 Temperature 97.8 F Pulse Rate 79 Respiratory Rate 16 Blood Pressure 141/88 H Pulse Oximetry 97 Oxygen Delivery Method Room Air Medical Decision Making [facility] Narrative Medical decision making narrative: CC: Severe right foot pain Complicating co-morbidities: Obesity, hypertension, diabetes Data collected from: patient Differential considered: Plantar fasciitis, other overuse injury, stress fracture, infection, foreign body Exam documented above, pertinent findings include: Tender over the plantar insertion. No evidence of infection and no evidence. He is full sensation to his foot I do not suspect occult foreign body Treatments: Discussed use of a splint at night keep his foot in the flexed position to allow appropriate healing. Use of nonsteroidals, ice and rest. Discussion: 34-year-old gentleman with severe right heel pain to the point he is unable to walk. Exam is classic for plantar fasciitis as is description of worsening symptoms over the last number of months. Prescription for naproxen, rest, crutches, splinting to keep his foot flexed all discussed. Encouraged him to look for heal cushioning options and to do more research on plantar fasciitis and recommended treatments at home. Questions are answered he is safe for discharge Discharge Plan Departure Patient Disposition: Home Clinical Impression: Plantar fasciitis of left foot Instructions: DI for Plantar Fasciitis Activity Restrictions/Additional Instructions: Thank you for coming in today You have plantar fasciitis This is an overuse injury which means that you actually need to rest. Using ice and avoiding walking on the foot as much as possible we will be helpful. I have given you a prescription for Naprosyn to take morning and night, this is an anti-inflammatory. You should not take ibuprofen, Motrin, Alleve at the same time. You can use Tylenol during the day to help increase the Naprosyn efficacy. We fashioned splint for you in the emergency department. I would recommend wearing this at night. This keeps her foot in the appropriate position so that as it heals the 1st step of the day is not breaking down all of the new healed fibers. Using a heel cushion, there are multiple commercially available options at drug stores for plantar fasciitis, we will be helpful inside your work boot. Where an issue that has as much support as possible we will also be helpful. You want to have as much cushioning at the very bottom of your heal to try and reduce the inflammation You may find that crutches or helpful. If you find a wheeled knee walker (they have these that is [employer] occasionally) you may find that that is helpful as well I would recommend following up with your primary care provider. If you find that you are getting worse or develop any new symptoms, please feel free to return to the emergency department for further evaluation. Prescriptions: New naproxen 500 mg tablet,delayed release (DR/EC) 500 mg PO BID Qty: 60 3RF No Action cetirizine [Zyrtec] 10 mg tablet 10 mg PO DAILY PRN (Reason: congestion) Qty: 14 0RF omeprazole magnesium [Prilosec OTC] 20 mg tablet,delayed release (DR/EC) 20 mg PO DAILY Qty: 20 0RF hydrocodone-acetaminophen 5-325 mg tablet 1 tab PO BID PRN (Reason: pain) Qty: 10 0RF hydrochlorothiazide 12.5 mg tablet 25 mg PO DAILY diltiazem HCl 240 mg capsule,extended release 24 hr 240 mg PO DAILY flecainide 50 mg tablet 50 mg PO Q12H buspirone 7.5 mg tablet 7.5 mg PO BID Qty: 60 0RF metoprolol succinate 50 mg tablet extended release 24 hr 50 mg PO DAILY Qty: 30 1RF furosemide [Lasix] 20 mg tablet 20 mg PO QAM Qty: 3 0RF metformin 500 mg tablet 1,000 mg PO BID Qty: 90 2RF Referrals: Dennis Zhang MD [Primary Care Provider] - Stand Alone Forms: Patient Portal/API, Work Release Note
[2024-02-01 07:02] VITALS: BP 156/85; PULSE 81; O2SAT 97
--- NOTE | 2024-02-01 07:43 | PC.NURSE ---
Pt exceeded weight (>360lbs) for regular crutches; however pt exceeded height for bariatric crutches (pt is 6'3). supervisor pastry contacted and MD Mccoy; compromise came to giving the appropriate height size crutches and a written prescription for appropriate height/weight crutches. Pt stated this plan would work for him.
--- NOTE | 2024-02-01 07:46 | PC.NURSE ---
Left heal pain; chronic lower leg issues (primarily in bilateral knees). splinted pt left foot.
== END 2024-02-01 07:47 | disposition home or self-care (01) ==
PROVIDERS: Emergency Provider Emergency Medicine; PCP Student in an Organized Health Care Education/Training Program
DX: M72.2 Plantar fascial fibromatosis (principal)
CPT/HCPCS: 99282; 99283